=== PATIENT | male | born 1970 | race Caucasian/White ===

== ENCOUNTER 2016-11-12 22:39 | Inpatient (IN) | payer BC ==
[2016-11-12 22:49] LABS: Glucose,Whole Blood 87 mg/dL (75-99)
[2016-11-12] MEDS ORDERED: SODIUM CHLORIDE 0.9% 1,000 ML IV STA (22:53)
[2016-11-12 23:04] LABS: Basophils % (A) 0 %; CHCM 33.7; Eosinophils # (A) 0.2 k/uL (0-0.7); Eosinophils % (A) 3 %; HCT 43.3 % (39.0-53.0); HDW 2.14; HGB 14.1 gm/dL (13.0-17.5); Luc % (Auto) 2; Lymphocytes # (A) 2.4 k/uL (1.0-4.8); Lymphocytes % (A) 26 %; MCH 30.9 pg (25.0-35.0); MCHC 32.4 g/dL (31.0-37.0); MCV 95.4 fL (80.0-100.0); Mean Platelet Volume 7.5; Monocytes # (A) 0.5 k/uL (0-1.0); Monocytes % (A) 5 %; Neutrophils # (A) 5.9 k/uL (1.3-7.7); Neutrophils % (A) 63 %; RBC 4.54 m/uL (4.30-5.90); RDW 12.6 % (11.5-15.5); WBC 9.3 k/uL (3.8-10.6); WBC (Perox) 9.38
[2016-11-12 23:14] LABS: INR 1.1 (<1.1); Partial Thromboplastin Time 25.1 sec (22.0-30.0); Prothrombin Time 10.8 sec (9.0-12.0)
[2016-11-12 23:17] LABS: ALT 39 U/L (21-72); AST 28 U/L (17-59); Alkaline Phosphatase 82 U/L (38-126); Anion Gap 8 mmol/L; Blood Urea Nitrogen 20 mg/dL (9-20); Calcium 9.2 mg/dL (8.4-10.2); Carbon Dioxide 28 mmol/L (22-30); Chloride 102 mmol/L (98-107); Glucose 96 mg/dL (74-99); Magnesium 1.7 mg/dL (1.6-2.3); Non-African American GFR(MDRD) >60 (>60 ml/min/1.73 sqM); Potassium 4.3 mmol/L (3.5-5.1); Sodium 138 mmol/L (137-145); Total Bilirubin 0.6 mg/dL (0.2-1.3)
[2016-11-12 23:26] LABS: Creatine Kinase 207 U/L (55-170)
--- NOTE | 2016-11-12 23:31 | XR ---
EXAMINATION TYPE: XR chest 2V DATE OF EXAM: 11/12/2016 11:08 PM COMPARISON: June 15, 2016 HISTORY: Atrial fibrillation and syncope TECHNIQUE: Frontal and lateral views of the chest are obtained. FINDINGS: The right costophrenic angle is not completely included in the radiograph. There is a patchy airspace opacity in the right lung base with suspected mild active infiltrate or at electasis. Hyperinflation of lungs is noted. . The cardiac silhouette size is within normal limits. Moderate degenerative arthritic changes in th e thoracic spine. IMPRESSION: 1. Suspected Mild infiltrates or atelectasis in the right lung base. 2. Hyperinflation of lungs.
--- NOTE | 2016-11-12 23:36 | ED ---
General Adult HPI - General Chief complaint: Syncope Stated complaint: Syncope, fell & hit head Time Seen by Provider: 11/12/16 22:47 Source: patient, EMS, RN notes reviewed Mode of arrival: EMS Limitations: no limitations - History of Present Illness Initial comments: 46-year-old male presents to the emergency department with a chief complaint of syncopal episode. Patient states she was at work just walking around. Patient states he started to feel lightheaded and then he passed out. Patient states that he did fall backwards. Patient states that he did hit his head. Patient denies any headache or nausea at this time. Patient states that he then had the endoscope called and is here. Patient states he has a history of this in the past. Patient does admit to a history of a flutter as well. Patient states that he was admitted last time he had one of these episodes. Patient denies any pain or any symptoms at this time. Patient denies any shortness of breath and states he is not feeling lightheaded laying down.Patient denies any recent fever, chills, shortness of breath, chest pain, back pain, abdominal pain , nausea vomiting, numbness or tingling, dysuria or hematuria, constipation or diarrhea, headaches or visual changes, or any other current symptoms. - Related Data Home Medications Medication Instructions Recorded Confirmed Flecainide Acetate 50 mg PO BID 11/12/16 11/12/16 Lisinopril [Zestril] 10 mg PO DAILY 11/12/16 11/12/16 Temazepam [Restoril] 15 mg PO HS PRN 11/12/16 11/12/16 Previous Rx's Medication Instructions Recorded Metoprolol Tartrate [Lopressor] 12.5 mg PO BID #60 tab 06/17/16 Allergies Allergy/AdvReac Type Severity Reaction Status Date / Time No Known Allergies Allergy Verified 11/12/16 22:56 Review of Systems ROS Statement: Those systems with pertinent positive or pertinent negative responses have been documented in the HPI. ROS Other: All systems not noted in ROS Statement are negative. Past Medical History Past Medical History: Atrial Flutter, Sleep Apnea/CPAP/BIPAP Additional Past Medical History / Comment(s): Does not use C-PAP @ this time. Had a cardioversion with Dr. Benavidez 3 yrs. ago. No further heart problems. Has some varicose veins. History of Any Multi-Drug Resistant Organisms: None Reported Past Surgical History: Cardiac Ablation, Heart Catheterization Past Anesthesia/Blood Transfusion Reactions: No Reported Reaction Past Psychological History: No Psychological Hx Reported Smoking Status: Current every day smoker Past Alcohol Use History: None Reported, Daily Past Drug Use History: None Reported - Past Family History Mother Family Medical History: Cancer Additional Family Medical History / Comment(s): Breast Father Family Medical History: Myocardial Infarction ([place]) Sister(s) Family Medical History: Congestive Heart Failure (CHF) Brother(s) Family Medical History: Coronary Artery Disease (CAD) Additional Family Medical History / Comment(s): CABG General Exam - General Exam Comments Initial Comments: General: The patient is awake and alert, in no distress, and does not appear acutely ill. Eye: Pupils are equal, round and reactive to light, extra-ocular movements are intact; there is normal conjunctiva bilaterally. No signs of icterus. Ears, nose, mouth and throat: There are moist mucous membranes and no oral lesions. Neck: The neck is supple, there is no tenderness. Cardiovascular: There is a regular rate and rhythm. No murmur, rub or gallop is appreciated. Respiratory: Lungs are clear to auscultation, respirations are non-labored, breath sounds are equal. No wheezes, stridor, rales, or rhonchi. Gastrointestinal: Soft, non-distended, non-tender abdomen without masses or organomegaly noted. There is no rebound or guarding present. No CVA tenderness. Bowel sounds are unremarkable. Back: There is no tenderness to palpation in the midline. There is no obvious deformity. No rashes noted. Musculoskeletal: Normal ROM, no tenderness, There is no pedal edema. There is no calf tenderness or swelling. Sensation intact. Pulses equal bilaterally 2+. Neurological: CN II-XII intact, There are no obvious motor or sensory deficits. Coordination appears grossly intact. Speech is normal. Skin: Skin is warm and dry and no rashes or lesions are noted. Psychiatric: Cooperative, appropriate mood & affect, normal judgment. Limitations: no limitations Course Vital Signs 11/12/16 11/12/16 11/13/16 22:40 23:36 00:06 Temperature 97.8 F Pulse Rate 84 68 Pulse Rate [ 73 Right Sitting] Pulse Rate [ 83 Right Standing] Pulse Rate [ 75 Right Supine] Respiratory 16 18 Rate Blood Pressure 111/71 108/66 Blood Pressure 110/69 [Right Arm Sitting] Blood Pressure 113/83 [Right Arm Standing] Blood Pressure 108/65 [Right Arm Supine] O2 Sat by Pulse 98 99 Oximetry EKG Findings - EKG Comments: EKG Findings:: Normal sinus rhythm with sinus arrhythmia 93 bpm, normal axis, no atopy, no S-T depressions or elevations, Medical Decision Making - Medical Decision Making 46-year-old male presents to emergency department chief complaint of syncopal episode. At this time patient's EKG is reviewed as well as lab work. At this time patient does appear to be stable with no arrhythmias. Patient's previous workup was reviewed that did show that his syncope was caused by SVT and did have reproducible last CT in the emergency department. Due to this history as well as a syncopal episode as well as the patient's age. We will admit the patient for continued observation and monitoring. This is discussed with the patient was in agreement with this plan. Patient will be admitted at this time. Dr. Amaya was contacted by patient. - Lab Data Result diagrams: 11/12/16 22:52 11/12/16 22:52 Lab Results 11/12/16 11/12/16 11/12/16 Range/Units 22:47 22:52 22:52 WBC 9.3 (3.8-10.6) k/uL RBC 4.54 (4.30-5.90) m/uL Hgb 14.1 (13.0-17.5) gm/dL Hct 43.3 (39.0-53.0) % MCV 95.4 (80.0-100.0) fL MCH 30.9 (25.0-35.0) pg MCHC 32.4 (31.0-37.0) g/dL RDW 12.6 (11.5-15.5) % Plt Count 210 (150-450) k/uL Neutrophils % 63 % Lymphocytes % 26 % Monocytes % 5 % Eosinophils % 3 % Basophils % 0 % Neutrophils # 5.9 (1.3-7.7) k/uL Lymphocytes # 2.4 (1.0-4.8) k/uL Monocytes # 0.5 (0-1.0) k/uL Eosinophils # 0.2 (0-0.7) k/uL Basophils # 0.0 (0-0.2) k/uL PT (9.0-12.0) sec INR (<1.1) APTT (22.0-30.0) sec Sodium (137-145) mmol/L Potassium (3.5-5.1) mmol/L Chloride (98-107) mmol/L Carbon Dioxide (22-30) mmol/L Anion Gap mmol/L BUN (9-20) mg/dL Creatinine (0.66-1.25) mg/dL Est GFR (MDRD) Af Amer (>60 ml/min/1.73 sqM) Est GFR (MDRD) Non-Af (>60 ml/min/1.73 sqM) Glucose (74-99) mg/dL POC Glucose (mg/dL) 87 (75-99) mg/dL POC Glu Orbitread Operator ID [place] Calcium (8.4-10.2) mg/dL Magnesium (1.6-2.3) mg/dL Total Bilirubin (0.2-1.3) mg/dL AST (17-59) U/L ALT (21-72) U/L Alkaline Phosphatase (38-126) U/L Total Creatine Kinase 207 H (55-170) U/L CK-MB (CK-2) 4.3 H* (0.0-2.4) ng/mL CK-MB (CK-2) Rel Index 2.1 Troponin I <0.012 (0.000-0.034) ng/mL Total Protein (6.3-8.2) g/dL Albumin (3.5-5.0) g/dL Urine Color Urine Appearance (Clear) Urine pH (5.0-8.0) Ur Specific [place] (1.001-1.035) Urine Protein (Negative) Urine Glucose (UA) (Negative) Urine Ketones (Negative) Urine Blood (Negative) Urine Nitrate (Negative) Urine Bilirubin (Negative) Urine Urobilinogen (<2.0) mg/dL Ur Leukocyte Esterase (Negative) 11/12/16 11/12/16 11/13/16 Range/Units 22:52 22:52 00:40 WBC (3.8-10.6) k/uL RBC (4.30-5.90) m/uL Hgb (13.0-17.5) gm/dL Hct (39.0-53.0) % MCV (80.0-100.0) fL MCH (25.0-35.0) pg MCHC (31.0-37.0) g/dL RDW (11.5-15.5) % Plt Count (150-450) k/uL Neutrophils % % Lymphocytes % % Monocytes % % Eosinophils % % Basophils % % Neutrophils # (1.3-7.7) k/uL Lymphocytes # (1.0-4.8) k/uL Monocytes # (0-1.0) k/uL Eosinophils # (0-0.7) k/uL Basophils # (0-0.2) k/uL PT 10.8 (9.0-12.0) sec INR 1.1 (<1.1) APTT 25.1 (22.0-30.0) sec Sodium 138 (137-145) mmol/L Potassium 4.3 (3.5-5.1) mmol/L Chloride 102 (98-107) mmol/L Carbon Dioxide 28 (22-30) mmol/L Anion Gap 8 mmol/L BUN 20 (9-20) mg/dL Creatinine 0.90 (0.66-1.25) mg/dL Est GFR (MDRD) Af Amer >60 (>60 ml/min/1.73 sqM) Est GFR (MDRD) Non-Af >60 (>60 ml/min/1.73 sqM) Glucose 96 (74-99) mg/dL POC Glucose (mg/dL) (75-99) mg/dL POC Glu Orbitread Operator ID Calcium 9.2 (8.4-10.2) mg/dL Magnesium 1.7 (1.6-2.3) mg/dL Total Bilirubin 0.6 (0.2-1.3) mg/dL AST 28 (17-59) U/L ALT 39 (21-72) U/L Alkaline Phosphatase 82 (38-126) U/L Total Creatine Kinase (55-170) U/L CK-MB (CK-2) (0.0-2.4) ng/mL CK-MB (CK-2) Rel Index Troponin I (0.000-0.034) ng/mL Total Protein 7.0 (6.3-8.2) g/dL Albumin 4.2 (3.5-5.0) g/dL Urine Color Yellow Urine Appearance Clear (Clear) Urine pH 5.0 (5.0-8.0) Ur Specific [place] 1.020 (1.001-1.035) Urine Protein Negative (Negative) Urine Glucose (UA) Negative (Negative) Urine Ketones Negative (Negative) Urine Blood Negative (Negative) Urine Nitrate Negative (Negative) Urine Bilirubin Negative (Negative) Urine Urobilinogen <2.0 (<2.0) mg/dL Ur Leukocyte Esterase Negative (Negative) Disposition Clinical Impression: Syncope, Hx of atrial flutter Disposition: ADMITTED IP TO THIS HOSP Condition: Stable Time of Disposition: 00:53 Decision Date: 11/13/16 Decision Time: 00:53
[2016-11-12 23:40] LABS: Troponin I <0.012 ng/mL (0.000-0.034)
[2016-11-12 23:41] LABS: Creatine Kinase MB 4.3 ng/mL (0.0-2.4)
[2016-11-13 00:51] LABS: Appearance,Urine Clear (Clear); Bilirubin,Urine Negative (Negative); Glucose,Urine (UA) Negative (Negative); Ketones,Urine Negative (Negative); Leukocyte Esterase,Urine Negative (Negative); Nitrite,Urine Negative (Negative); Protein,Urine Negative (Negative); UA Billing (MACRO vs. MICRO) CHEM; Urobilinogen,Urine <2.0 mg/dL (<2.0)
[2016-11-13] MEDS ORDERED: NALOXONE 0.4 MG/ML 1 ML VIAL IV PRN (00:53)
[2016-11-13] MEDS ORDERED: ACETAMINOPHEN TAB 325 MG TAB PO PRN (00:53)
[2016-11-13] MEDS ORDERED: TEMAZEPAM 15 MG CAP PO PRN (00:57)
[2016-11-13] MEDS: SODIUM CHLORIDE 0.9% 1,000 ML IV SCH ×2 (01:06→01:53)
[2016-11-13 01:31] LABS: Glucose,Whole Blood 82 mg/dL (75-99)
[2016-11-13 01:47] VITALS: TEMP 97.6; BMI 26.8
[2016-11-13 04:54] LABS: Basophils % (A) 1 %; CH 31.8; CHCM 33.6; Eosinophils # (A) 0.3 k/uL (0-0.7); Eosinophils % (A) 4 %; HCT 39.9 % (39.0-53.0); HDW 2.09; HGB 13.2 gm/dL (13.0-17.5); Luc # (Auto) 0.22; Luc % (Auto) 3; Lymphocytes # (A) 2.5 k/uL (1.0-4.8); Lymphocytes % (A) 33 %; MCH 31.4 pg (25.0-35.0); MCHC 33.1 g/dL (31.0-37.0); MCV 94.9 fL (80.0-100.0); Mean Platelet Volume 6.8; Monocytes # (A) 0.3 k/uL (0-1.0); Monocytes % (A) 4 %; Neutrophils # (A) 4.4 k/uL (1.3-7.7); Neutrophils % (A) 56 %; RDW 12.5 % (11.5-15.5); WBC 7.8 k/uL (3.8-10.6); WBC (Perox) 8.34
[2016-11-13 05:08] LABS: Anion Gap 7 mmol/L; Blood Urea Nitrogen 17 mg/dL (9-20); Calcium 8.7 mg/dL (8.4-10.2); Carbon Dioxide 25 mmol/L (22-30); Chloride 105 mmol/L (98-107); Glucose 101 mg/dL (74-99); Magnesium 1.9 mg/dL (1.6-2.3); Non-African American GFR(MDRD) >60 (>60 ml/min/1.73 sqM); Phosphorous 3.5 mg/dL (2.5-4.5); Potassium 3.9 mmol/L (3.5-5.1); Sodium 137 mmol/L (137-145)
[2016-11-13 05:15] LABS: Creatine Kinase 172 U/L (55-170)
[2016-11-13 05:29] LABS: Troponin I <0.012 ng/mL (0.000-0.034)
[2016-11-13 05:35] LABS: Creatine Kinase MB 2.9 ng/mL (0.0-2.4)
[2016-11-13] MEDS ORDERED: LISINOPRIL 10 MG TAB PO SCH (09:00)
[2016-11-13] MEDS ORDERED: METOPROLOL TARTRATE 12.5 MG TAB PO SCH (09:00)
[2016-11-13] MEDS ORDERED: FLECAINIDE 50 MG TAB PO SCH (09:00)
[2016-11-13] MEDS ORDERED: NICOTINE 14MG/24HR PATCH TRANSDERM SCH (10:00)
[2016-11-13 12:18] LABS: Creatine Kinase 193 U/L (55-170)
[2016-11-13 12:32] LABS: Troponin I <0.012 ng/mL (0.000-0.034)
[2016-11-13 12:36] LABS: Creatine Kinase MB 3.1 ng/mL (0.0-2.4)
--- NOTE | 2016-11-13 14:32 | P.HPIM ---
History of Present Illness H&P Date: 11/13/16 Chief Complaint: Syncopal episode This is a 46-year-old male, patient of Dr. Ngo. He has a known past medical history of atrial flutter in which she has had previous cardiac ablation. Also history of nicotine dependence. Patient presented to the emergency room after having a syncopal episode. Patient reports that he was at work and walking. He started having had some lightheadedness and then passed out. Patient reports lost consciousness probably a few seconds. Patient reports that he did hit his head. He denies any headache or nausea. Patient has been having episodes of heart palpitations. He reports that he has been taking his cardiac meds. And he follows up with cardiology regularly. He denies any chest pain or shortness of breath. Denies any nausea or vomiting. Denies any bowel movement changes or urinary symptoms. Denies any fevers chills or sweats. Denies any cough. EKG had shown normal sinus rhythm with sinus arrhythmia. Chest x-ray suspect mild infiltrate versus atelectasis at the right lung base. Cardiology has been consulted. Patient was admitted to the ICU. Per ER report they reported that patient did have a previous syncopal episode due to SVT. Patient reports no previous syncopal episode. In June he did have episodes of dizziness related to atrial tachycardia. Review of Systems Please refer to HPI otherwise unremarkable Past Medical History Past Medical History: Atrial Flutter, Sleep Apnea/CPAP/BIPAP Additional Past Medical History / Comment(s): Does not use C-PAP @ this time. Had a cardioversion with Dr. Benavidez 3 yrs. ago. No further heart problems. Has some varicose veins. History of Any Multi-Drug Resistant Organisms: None Reported Past Surgical History: Cardiac Ablation, Heart Catheterization Past Anesthesia/Blood Transfusion Reactions: No Reported Reaction Past Psychological History: No Psychological Hx Reported Smoking Status: Current every day smoker Past Alcohol Use History: None Reported, Daily Past Drug Use History: None Reported - Past Family History Mother Family Medical History: Cancer Additional Family Medical History / Comment(s): Breast Father Family Medical History: Myocardial Infarction ([place]) Sister(s) Family Medical History: Congestive Heart Failure (CHF) Brother(s) Family Medical History: Coronary Artery Disease (CAD) Additional Family Medical History / Comment(s): CABG Medications and Allergies Home Medications Medication Instructions Recorded Confirmed Type Flecainide Acetate 50 mg PO BID 11/12/16 11/12/16 History Lisinopril [Zestril] 10 mg PO DAILY 11/12/16 11/12/16 History Temazepam [Restoril] 15 mg PO HS PRN 11/12/16 11/12/16 History Allergies Allergy/AdvReac Type Severity Reaction Status Date / Time No Known Allergies Allergy Verified 11/12/16 22:56 Physical Exam Vitals: Vital Signs Temp Pulse Pulse Resp BP BP Pulse Ox 11/13/16 03:23 14 129/69 96 11/13/16 01:23 97.6 F 62 14 96 11/13/16 01:07 97.4 F L 63 18 110/65 99 Intake and Output 11/12/16 11/13/16 11/13/16 22:59 06:59 14:59 Intake Total 600 Output Total 900 Balance -300 Intake: IV 600 Sodium Chloride 0.9% 1, 600 000 ml @ 150 mls/hr IV . Q6H40M [facility] Rx#:[id number] Output: Urine 900 Other: Voiding Method Urinal Urinal Weight 105.3 kg Head normocephalic Neck supple Lungs clear to auscultation bilaterally no wheezing or crackles Heart regular rate and rhythm S1-S2, no rub or gallop Abdomen is soft nontender nondistended positive bowel sounds no hepatosplenomegaly Extremities no edema Neuro alert and orientated to 3 Results CBC & Chem 7: 11/13/16 04:41 11/13/16 04:41 Labs: Abnormal Lab Results - Last 24 Hours (Table) 11/13/16 11/13/16 11/13/16 Range/Units 04:41 04:41 04:41 RBC 4.20 L (4.30-5.90) m/uL Glucose 101 H (74-99) mg/dL Total Creatine Kinase 172 H (55-170) U/L CK-MB (CK-2) 2.9 H* (0.0-2.4) ng/mL Thrombosis Risk Factor Assmnt - Choose All That Apply Any of the Below Risk Factors Present?: Yes Each Factor Represents 1 point: Age 41-60 years Thrombosis Risk Factor Assessment Total Risk Factor Score: 1 Thrombosis Risk Factor Assessment Level: Low Risk Assessment and Plan Plan: 1. Syncopal episode: Patient admitted to the ICU. Monitor for any cardiac arrhythmias. Currently in normal sinus rhythm. Cardiology consulted. Last echo was June 2016 with normal EF and no significant valvular abnormality 2. Nicotine dependence: Discussed smoking cessation. Patient is interested in quitting. We'll add nicotine patch 14 mg daily 3. Atelectasis on chest x-ray without pneumonia. Patient denies any significant cough no fever and no leukocytosis. We'll add incentive spirometer 4. History of atrial flutter with previous cardiac ablation about 4 years ago. Continue flutter made and Lopressor. Continue to monitor. We'll await further cardiology recommendations. GI prophylaxis Pepcid and DVT prophylaxis subcu heparin Time with Patient: Greater than 30 (Greater than 50% of the total time spent in counseling and coordination of care.I performed an examination of the patient and discussed their management with the physician Boatwright. I have reviewed the Physician Boatwright's notes and agree with the documented findings and plan of care)
--- NOTE | 2016-11-13 14:36 | P.DS ---
Providers Date of admission: 11/13/16 00:53 Expected date of discharge: 11/13/16 Attending physician: Tyler Amaya Consults: Cardiology Primary care physician: Sheila Ngo Hospital Course: Discharge diagnosis 1. Syncopal episode: Exact etiology unclear. Possibly related to cardiac arrhythmia. Further workup to be completed outpatient with event monitor. Monitor for any cardiac arrhythmias. Currently in normal sinus rhythm. Cardiology consulted. Last echo was June 2016 with normal EF and no significant valvular abnormality 2. Nicotine dependence: Discussed smoking cessation. Patient is interested in quitting. We'll add nicotine patch 14 mg daily 3. Atelectasis on chest x-ray without pneumonia. Patient denies any significant cough no fever and no leukocytosis. We'll add incentive spirometer 4. History of atrial flutter with previous cardiac ablation about 4 years ago. Continue flutter made and Lopressor. Continue to monitor. We'll await further cardiology recommendations. Hospital course This is a 46-year-old male, patient of Dr. Ngo. He has a known past medical history of atrial flutter in which she has had previous cardiac ablation. Also history of nicotine dependence. Patient presented to the emergency room after having a syncopal episode. Patient reports that he was at work and walking. He started having had some lightheadedness and then passed out. Patient reports lost consciousness probably a few seconds. Patient reports that he did hit his head. He denies any headache or nausea. Patient has been having episodes of heart palpitations. He reports that he has been taking his cardiac meds. And he follows up with cardiology regularly. He denies any chest pain or shortness of breath. Denies any nausea or vomiting. Denies any bowel movement changes or urinary symptoms. Denies any fevers chills or sweats. Denies any cough. EKG had shown normal sinus rhythm with sinus arrhythmia. Chest x-ray suspect mild infiltrate versus atelectasis at the right lung base. Cardiology has been consulted. Per ER report they reported that patient did have a previous syncopal episode due to SVT. Patient reports no previous syncopal episode. In June he did have episodes of dizziness related to atrial tachycardia. Patient has remained in sinus rhythm. The exact etiology of his syncopal episode is unclear but possibly related to a cardiac arrhythmia. Cardiology has recommended that he be discharged and to be set up with an event monitor. Patient will fern picker the event monitor after being discharged today. And will follow-up with cardiology in the outpatient setting. Patient has been a symptom during this hospitalization. He is stable for discharge. Please refer to chart for any further details. Patient Condition at Discharge: Stable Plan - Discharge Summary Discharge Medication List Metoprolol Tartrate [Lopressor] 12.5 mg PO BID #60 tab 06/17/16 [Rx] Flecainide Acetate 50 mg PO BID 11/12/16 [History] Temazepam [Restoril] 15 mg PO HS PRN 11/12/16 [History] Follow up Appointment(s)/Referral(s): Shyam Benavidez MD [STAFF PHYSICIAN] - 1 Week Sheila Ngo DO [Primary Care Provider] - 1 Week Activity/Diet/Wound Care/Special Instructions: Diet: cardiac Activity: as tolerated Patient to fern picker Event Monitor at [facility] Discharge Disposition: HOME SELF-CARE
[2016-11-13 14:56] VITALS: BP 121/86; PULSE 55; RESP 27
[2016-11-13] MEDS ORDERED: HEPARIN SODIUM,PORCINE 5,000 UNIT/ML 1 ML VIAL SQ SCH (21:00)
--- NOTE | 2016-11-13 23:13 | P.CRDCN ---
History of Present Illness Consult date: 11/13/16 History of present illness: This is a 46-year-old gentleman with a past medical history of atrial flutter for which he had ablation done in the past. Patient has had occasional brief palpitations. Apparently patient was started on a new medication presumably lisinopril . Patient in the past had occasional episodes of dizziness and near syncope but never expenses syncopal episode. Yesterday patient had an episode of palpitations which last a little longer than usual but subsided spontaneously patient tried to get up and felt lightheaded as usual but patient would not sit down and actually ended up having a syncopal episode. Nobody was around. Patient did not have any major injuries. Patient came to the emergency room for further evaluation. Patient is found to be slightly bradycardic but maintaining sinus rhythm. No postural hypotension was documented. Patient denied any chest pain or shortness of breath. As patient remained clinically stable and cardiac enzymes are negative without any significant arrhythmias, patient is being discharged home. Patient will have a event monitor as an outpatient and have follow-ups with Dr. Benavidez for further evaluation. Patient is also advised to stop lisinopril until seen by Dr. Benavidez. Review of Systems REVIEW OF SYSTEMS: CONSTITUTIONAL:. Patient is doing well. No complaints of fever or chills EYES: Denies diplopia, blurring of vision EARS, NOSE, MOUTH, THROAT: Denies headaches, denies sore throat. CARDIOVASCULAR: As for consult RESPIRATORY: Denies shortness of breath, denies cough. GASTROINTESTINAL: Denies change in appetite, denies abdominal pain, denies diarrhea GENITOURINARY: Denies hematuria, denies infections. MUSKULOSKELETAL: Denies pain, denies swelling. Denies any cramps or claudication INTEGUMENTARY: Denies rash, denies eczema. NEUROLOGICAL: Denies focal weakness, or visual disturbance. Denies any dizziness or syncope PSYCHIATRIC: Denies anxiety, denies depression. HEMATOLOGIC/LYMPHATIC: Denies any bleeding, denies enlarged lymph nodes. Past Medical History Past Medical History: Atrial Flutter, Sleep Apnea/CPAP/BIPAP Additional Past Medical History / Comment(s): Does not use C-PAP @ this time. Had a cardioversion with Dr. Benavidez 3 yrs. ago. No further heart problems. Has some varicose veins. History of Any Multi-Drug Resistant Organisms: None Reported Past Surgical History: Cardiac Ablation, Heart Catheterization Past Anesthesia/Blood Transfusion Reactions: No Reported Reaction Past Psychological History: No Psychological Hx Reported Smoking Status: Current every day smoker Past Alcohol Use History: None Reported, Daily Past Drug Use History: None Reported - Past Family History Mother Family Medical History: Cancer Additional Family Medical History / Comment(s): Breast Father Family Medical History: Myocardial Infarction ([place]) Sister(s) Family Medical History: Congestive Heart Failure (CHF) Brother(s) Family Medical History: Coronary Artery Disease (CAD) Additional Family Medical History / Comment(s): CABG Medications and Allergies Home Medications Medication Instructions Recorded Confirmed Type Flecainide Acetate 50 mg PO BID 11/12/16 11/12/16 History Temazepam [Restoril] 15 mg PO HS PRN 11/12/16 11/12/16 History Allergies Allergy/AdvReac Type Severity Reaction Status Date / Time No Known Allergies Allergy Verified 11/12/16 22:56 Physical Exam Vitals: Vital Signs Temp Pulse Pulse Resp BP BP Pulse Ox 11/13/16 13:00 55 L 27 H 121/86 99 11/13/16 08:00 55 L 14 119/66 97 11/13/16 07:00 50 L 15 96 11/13/16 06:00 75 32 H 96 11/13/16 05:00 52 L 14 96 11/13/16 04:00 59 L 18 96 11/13/16 03:23 14 129/69 96 11/13/16 03:00 55 L 17 129/69 91 L 11/13/16 02:00 68 15 129/69 96 11/13/16 01:29 62 22 11/13/16 01:23 97.6 F 62 14 96 11/13/16 01:07 97.4 F L 63 18 110/65 99 Intake and Output 11/13/16 11/13/16 11/14/16 14:59 22:59 06:59 Other: Voiding Method Urinal GENERAL EXAM: Patient is alert and oriented and doesn't appear to be in any acute distress HEENT: Normocephalic. Normal reaction of pupils, equal size, normal range of extraocular motion. No erythema or exudates in the throat. NECK: No masses, no nuchal rigidity. CHEST: No chest wall deformity. LUNGS: Equal air entry with no crackles or wheeze. HEART: S1 and S2 normal with no audible mumurs or gallops. Regular rhythm, femorals equal on both sides.. ABDOMEN: No hepatosplenomegaly, normal bowel sounds, no guarding or rigidity. SKIN: No rashes CENTRAL NERVOUS SYSTEM: No focal deficits. EXTREMITIES: No cyanosis, clubbing or edema. Results 11/13/16 04:41 11/13/16 04:41 Cardiac Enzymes 11/13/16 11/13/16 Range/Units 04:41 11:17 CK-MB (CK-2) 2.9 H* 3.1 H* (0.0-2.4) ng/mL Troponin I <0.012 <0.012 (0.000-0.034) ng/mL CBC 11/13/16 Range/Units 04:41 WBC 7.8 (3.8-10.6) k/uL RBC 4.20 L (4.30-5.90) m/uL Hgb 13.2 (13.0-17.5) gm/dL Hct 39.9 (39.0-53.0) % Plt Count 198 (150-450) k/uL Comprehensive Metabolic Panel 11/13/16 Range/Units 04:41 Sodium 137 (137-145) mmol/L Potassium 3.9 (3.5-5.1) mmol/L Chloride 105 (98-107) mmol/L Carbon Dioxide 25 (22-30) mmol/L BUN 17 (9-20) mg/dL Creatinine 0.70 (0.66-1.25) mg/dL Glucose 101 H (74-99) mg/dL Calcium 8.7 (8.4-10.2) mg/dL Intake and Output 11/13/16 11/13/16 11/14/16 14:59 22:59 06:59 Other: Voiding Method Urinal 11/13/16 04:41 11/13/16 04:41 EKG Interpretations (text) Showed sinus rhythm with normal TN interval and QRS duration. QT interval is 346 with corrected QT interval of 430 ms Assessment and Plan (1) SVT (supraventricular tachycardia) Status: Acute (2) Syncope Status: Acute Plan: Patient has remained stable since admission with negative cardiac enzymes and stable cardiac rhythm except bradycardia. Patient is being discharged home. He will monitor with event monitor. We will discontinue lisinopril until seen by Dr. Benavidez. Further recommendations depend upon the clinical course.
[2016-11-14] MEDS ORDERED: FAMOTIDINE 20 MG TAB PO SCH (09:00)
== END 2016-11-13 15:56 | disposition home or self-care (01) | DRG 312 ==
LOC: EC 22:39 → 6ICU 11-13 00:53
PROVIDERS: ADMIT Internal Medicine; ATTEND Internal Medicine
DX: R55 Syncope and collapse (principal); I48.92 Unspecified atrial flutter; J98.11 Atelectasis; R42 Dizziness and giddiness; I49.9 Cardiac arrhythmia, unspecified; R00.2 Palpitations; G47.30 Sleep apnea, unspecified; F17.200 Nicotine dependence, unspecified, uncomplicated; I83.90 Asymptomatic varicose veins of unspecified lower extremity; Z71.6 Tobacco abuse counseling; Z98.890 Other specified postprocedural states; Z82.49 Family history of ischemic heart disease and other diseases of the circulatory system; Z79.899 Other long term (current) drug therapy; Z80.3 Family history of malignant neoplasm of breast; W01.10XA Fall on same level from slipping, tripping and stumbling with subsequent striking against unspecified object, initial encounter; Y93.01 Activity, walking, marching and hiking; Y92.9 Unspecified place or not applicable
CPT/HCPCS: 36415; 71020; 80048; 80053; 81003; 82550; 82553; 83735; 84100; 84484; 85025; 85610; 85730; 93005; 96360; 96361; 99285

== ENCOUNTER 2017-03-08 06:14 | Day surgery (SDC) | payer BC ==
[2017-03-05 10:42] VITALS: BMI 27.7
[2017-03-08] MEDS ORDERED: LIDOCAINE 1% 20 ML VIAL (10MG/ML) FOR IV START INTRADERMA PRN (06:19)
[2017-03-08] MEDS ORDERED: ceFAZolin 2 GM in SODIUM CHLORIDE 0.9% 100 ML IVPB ONE (06:19)
[2017-03-08] MEDS ORDERED: HYDROmorphone 1 MG/ML 1 ML SYRINGE IVP PRN (06:19)
[2017-03-08] MEDS ORDERED: ONDANSETRON 4 MG/2 ML VIAL IVP ONE (06:19)
[2017-03-08] MEDS ORDERED: ceFAZolin 1,000 MG in SODIUM CHLORIDE 0.9% IRRIGATIO 250 ML IRRIGATION ONE (06:19)
[2017-03-08] MEDS ORDERED: HEPARIN SODIUM 1,000 UNIT/ML VIAL ONE (07:16)
[2017-03-08] MEDS ORDERED: PROTAMINE SULFATE 10 MG/ML 5 ML VIAL IV ONE (07:16)
[2017-03-08] MEDS ORDERED: LIDOCAINE 1% INJ 10MG/ML (20 ML MDV) ONE (07:16)
[2017-03-08] MEDS ORDERED: HEPARIN SODIUM,PORCINE 10,000 UNIT/ML 1 ML VIAL ONE (07:16)
[2017-03-08] MEDS ORDERED: fentaNYL (PF) 50 MCG/ML 2 ML AMP ONE (07:16)
[2017-03-08] MEDS ORDERED: ROCURONIUM BROMIDE 10 MG/ML 10 ML VIAL IV ONE (07:16)
[2017-03-08] MEDS ORDERED: NEOSTIGMINE 1 MG/ML 10 ML VIAL ONE (07:16)
[2017-03-08] MEDS ORDERED: GLYCOPYRROLATE 0.2 MG/ML 2 ML VIAL ONE (07:16)
[2017-03-08] MEDS ORDERED: VECURONIUM 10 MG VIAL IV ONE (07:16)
[2017-03-08] MEDS ORDERED: MIDAZOLAM 2 MG/2 ML VIAL ONE (07:16)
[2017-03-08] MEDS ORDERED: ISOPROTERENOL 250 MCG/1.25 ML SYR IV ONE (07:16)
[2017-03-08] MEDS ORDERED: SUCCINYLCHOLINE CHLORIDE 100 MG/5 ML SYR IV ONE (07:16)
[2017-03-08] MEDS ORDERED: PROPOFOL 10 MG/ML 20 ML VIAL IV ONE (07:16)
[2017-03-08] MEDS ORDERED: IOHEXOL 350 MG/ML 50ML BOTTLE INJ ONE (07:43)
[2017-03-08] MEDS ORDERED: SODIUM CHLORIDE 0.9% 1,000 ML IV ONE (07:44)
[2017-03-08] MEDS: LIDOCAINE 2% INJ 20 MG/ML SQ ONE ×2 (08:23→08:34)
[2017-03-08] MEDS ORDERED: HEPARIN SODIUM,PORCINE/D5W PMX 25,000 UNIT in DEXTROSE/WATER 1 500ML.BAG IV ONE (08:40)
[2017-03-08] MEDS ORDERED: HEPARIN SODIUM (1,000 UNIT/ML) 1,000 UNIT in SODIUM CHLORIDE 0.9% 1,000 ML IRRIGATION ONE ×2 (10:35→12:28)
[2017-03-08] MEDS ORDERED: ACETAMINOPHEN TAB 325 MG TAB PO PRN (14:12)
[2017-03-08] MEDS ORDERED: ACETAMINOPHEN IV (For NPO) 1,000 MG in EMPTY BAG 1 BAG IVPB ONE (14:12)
[2017-03-08] MEDS ORDERED: TEMAZEPAM 15 MG CAP PO PRN (14:14)
[2017-03-08] MEDS ORDERED: ACETAMINOPHEN IV (For NPO) 1,000 MG/100 ML VIAL IVPB ONE (14:27)
--- NOTE | 2017-03-08 15:12 | CE ---
DATE OF SERVICE: Jose Sandy is a 47-year-old male patient who has a history of AV amilcar re-entrant tachycardia, status post successful ablation as well as typical atrial flutter, status post successful ablation many years back. He has been experiencing episodes of paroxysmal atrial fibrillation on flecainide. He was brought in for management of symptomatic atrial fibrillation with RVR, refractory to flecainide therapy. Patient is brought to the EP lab in a fast state. Written informed consent was obtained prior to the procedure. A diagnostic study and with Isuprel infusion performed at the outset. A 6 Yi venous sheath was placed in the left axillary vein. Via this, a decapolar catheter was positioned in the coronary sinus for coronary sinus pacing and recording. The right and left groins were prepped and draped as per protocol and a total of 3 venous sheaths were placed and femoral arterial sheath was placed. The femoral artery sheath was used for hemodynamic monitoring through the procedure as well as sampling. AST was maintained above 300. At the end of the procedure, the sheath was removed, Hemostasis was assured. Diagnostic catheters were placed in the coronary sinus RV, RA and HIS bundle area. Baseline measurements were as follows: Sinus cycle length 1015 ms, WY interval 185 ms, QRS 106 ms, QT 429 ms, AH interval 78 ms, HV interval 46 ms. With atrial pacing, no delta waves were noted, no slow pathway conduction was noted. Sinus node recovery times at 600, 500 and 400 ms were 1507, 1217, 1636 ms. Corresponding corrected sinus node recovery times were mildly prolonged. AV node Wenckebach block 460 ms from both the coronary sinus and the high right atrium. AV node ERP 600 ERP from the coronary sinus was 600 stimulation was performed from the coronary sinus and short bursts of nonsustained SVT, atrial tachycardia with a concentric activation was noted but no sustained SVT was noted. Burst stimulation on the high right atrium was performed from 400 ms down to 200 ms. On Isuprel, there was a semblance of slow pathway conduction, straight pacing, AV node at 250 ms with AV node Wenckebach block at 220 ms, no SVT was induced, no AV amilcar re-entry was induced. Occasional echo beats noted. VA Wenckebach block 320 ms, retrograde conduction was midline and detrimental, ventricular extrastimulation was performed. Ventricular ERP with 500 Following this Isuprel was stopped. Heparin was started. Right and left intracardiac echocardiography was performed. Intracardiac echocardiography in the interatrial septum was identified, transseptal catheterization was performed. RA pressure of 15 x 13 x 14 mmHg, LA pressure 19 x 11 x 14 mmHg. Three-D mapping of the pulmonary veins and the left atrium was performed. Voltage map of the veins was performed. Following that, antral isolation of the right-sided veins was performed and at the end of the procedure with pacing techniques as well as with mapping, both entrance and exit block was proven in the right ( ) veins. Please note that this was left-sided esophagus. The esophagus did not have to be deflected away and the ablation of the right-sided veins did not require esophageal deflection. The right-sided veins were large. Each vein divided into at least 2 branches almost immediately beyond the os. There was a left-sided esophagus right behind the posterior antrum of the left-sided veins. Initially RF ablation with anterior aspect was performed along the ridge with good power and contact force during short periods of apnea; however, when the posterior aspect was ablated, the esophagus could not be deflected a safe distance away. Occasional RF lesions were given especially outside in the antrum of the left inferior vein but these are very sporadic lesions and a full lesion set could not be made and the left superior vein was not ablated posteriorly at all. There was a rise in temperature when ablating the left inferior vein to 37.8 degrees centigrade. Deflection of the left-sided esophagus was difficult, both the left foot as well as right foot deflection was attempted, but this could not be safely deflected from the antrum and, therefore the left-sided veins could not be completely isolated and posterior wall ablation could not performed. Following that, heparin was stopped, catheter was removed, catheter was removed from the left atrium and right atrial mapping was performed. The patient had a previous atrial flutter ablation and voltage map of the right atrial isthmus was performed. Three-D mapping was performed. This was a short but a saucer-shaped isthmus. There was recovery in the subeustachian pouch in the eustachian ridge, RF ablation was carefully applied and noncapture was documented all along the area of ablation of the right atrial isthmus for atrial flutter. At the end of the procedure, Protamine was administered and patient the sheaths were removed. Patient was transferred back to telemetry after extubation. RESULT: 1. Diagnostic EP study revealed noninducibility of any sustained arrhythmias, especially AV node re-entry. 2. Successful ablation of the right-sided pulmonary veins at the antral level with complete entrance and exit block. 3. Left-sided esophagus that could not be deflected a safe distance away, despite attempting deflection in both directions right and left. 4. The left-sided veins at the result of this could not be ablated successfully in the posterior antrum, because it was unsafe. 5. Atrial flutter ablation (voltage mapping paced). PLAN: Continue rivaroxaban for at least 3 months and continue flecainide 75 mg twice daily. If he continues to have palpitations, then cryoablation will be attempted with temperature monitoring. I did speak to the family members and also spoke to the patient regarding this, that he will probably benefit from a cryoablation in the future, but I would prefer to wait for minimum of at least 3 to 4 months so that in case there is recovery on the right side, then we can ablate it at the same time.
[2017-03-08] MEDS: SODIUM CHLORIDE 0.9% 1,000 ML IV SCH (16:33)
[2017-03-08] MEDS: LACTATED RINGERS 1,000 ML IV SCH (16:33)
[2017-03-08] MEDS: HYDROcodone/APAP 5-325MG 1 EACH TAB PO PRN (16:37)
[2017-03-08] MEDS: RIVAROXABAN 10 MG TAB PO SCH (18:21)
[2017-03-08] MEDS: METOPROLOL TARTRATE 12.5 MG TAB PO SCH (20:02)
[2017-03-08] MEDS: FLECAINIDE 50 MG TAB PO SCH (20:02)
[2017-03-09] MEDS: LACTATED RINGERS 1,000 ML IV SCH (00:25)
[2017-03-09] MEDS: SODIUM CHLORIDE 0.9% 1,000 ML IV SCH (04:05)
[2017-03-09] MEDS: HYDROcodone/APAP 5-325MG 1 EACH TAB PO PRN ×2 (06:01→20:53)
[2017-03-09 07:00] LABS: Basophils % (A) 0 %; CH 31.9; CHCM 33.3; Eosinophils # (A) 0.1 k/uL (0-0.7); Eosinophils % (A) 1 %; HCT 42.7 % (39.0-53.0); HDW 2.14; HGB 14.1 gm/dL (13.0-17.5); Luc # (Auto) 0.19; Luc % (Auto) 2; Lymphocytes # (A) 1.3 k/uL (1.0-4.8); Lymphocytes % (A) 10 %; MCH 31.8 pg (25.0-35.0); MCHC 33.1 g/dL (31.0-37.0); MCV 96.1 fL (80.0-100.0); Mean Platelet Volume 6.9; Monocytes # (A) 0.6 k/uL (0-1.0); Monocytes % (A) 5 %; Neutrophils # (A) 10.2 k/uL (1.3-7.7); Neutrophils % (A) 83 %; RBC 4.44 m/uL (4.30-5.90); RDW 12.5 % (11.5-15.5); WBC 12.3 k/uL (3.8-10.6); WBC (Perox) 12.27
[2017-03-09 07:08] LABS: Anion Gap 8 mmol/L; Blood Urea Nitrogen 10 mg/dL (9-20); Calcium 9.1 mg/dL (8.4-10.2); Carbon Dioxide 26 mmol/L (22-30); Chloride 102 mmol/L (98-107); Glucose 116 mg/dL (74-99); Non-African American GFR(MDRD) >60 (>60 ml/min/1.73 sqM); Potassium 4.3 mmol/L (3.5-5.1); Sodium 136 mmol/L (137-145)
[2017-03-09] MEDS ORDERED: FUROSEMIDE 40 MG TAB PO STA (07:31)
[2017-03-09] MEDS: METOPROLOL TARTRATE 12.5 MG TAB PO SCH ×2 (08:20→20:54)
[2017-03-09] MEDS: FAMOTIDINE 20 MG TAB PO SCH (08:20)
[2017-03-09] MEDS: COLCHICINE 0.6 MG TAB PO SCH ×2 (08:20→20:54)
[2017-03-09] MEDS: FLECAINIDE 50 MG TAB PO SCH ×2 (08:21→20:54)
--- NOTE | 2017-03-09 08:35 | PN ---
DATE OF SERVICE: Jose underwent an A. fib ablation yesterday with esophageal deflection for a left-sided esophagus that could not be deflected and it finally could not really be deflected an adequate distance away from the left antrum posteriorly. Yesterday evening when I saw him he looked comfortable. He denied any chest discomfort or sore throat, but this morning he complains of sore throat. He also complains of chest discomfort which is pleuritic in nature. No odynophagia. No fever, chills. He does complain of shortness of breath upon walking, but at rest he looks comfortable. No dizziness, no lightheadedness. This morning he had an episode of sinus tachycardia. It did not appear like an atrial tachycardia. There was a gradual ( ). His blood pressure has been 141/73 mm of mercury, heart rate is in the 80s at rest and groin has healed well. No hematoma. Afebrile, 98.5 degrees Fahrenheit. Head and neck examination is normal. No JVD, thyromegaly, or carotid bruits. Heart sounds S1, S2 are normal. No rub, no gallop. No murmurs. Breath sounds are normal. No rhonchi. No crackles. ABDOMEN: Soft, nontender. EXTREMITIES: Warm. No edema. Groins are healed well. No hematoma. IMPRESSIONS: 1. Paroxysmal atrial fibrillation, status post atrial fibrillation ablation with complete isolation of the right-sided veins, but incomplete isolation of the left-sided veins. The posterior antrum was not ablated on account of the esophagus that could not be deflected a safe distance away and therefore linear ablation in this area was avoided. 2. Atrial flutter, status post ablation. 3. AV amilcar re-entry status post successful ablation in the past. SUGGEST: 1. Add one dose of Lasix 40 mg p.o. 2. Colchicine 0.6 mg twice daily. 3. Pepcid 20 mg p.o. daily. 4. Continue other cardiac medications. 5. Continue anticoagulation. 6. Continue flecainide and metoprolol. 7. Pepcid and colchicine will be continued. 8. Labs awaited, CBC and BMP.
[2017-03-09 08:50] VITALS: RESP 18
[2017-03-09] MEDS ORDERED: RIVAROXABAN 10 MG TAB PO SCH (09:00)
[2017-03-09] MEDS ORDERED: NON-FORMULARY DRUG (Rivaroxaban [Xarelto] 20 MG) PO SCH (09:00)
[2017-03-09] MEDS: RIVAROXABAN 10 MG TAB PO SCH (16:53)
[2017-03-09] MEDS ORDERED: FLECAINIDE 50 MG TAB PO STA (23:16)
[2017-03-10 03:52] VITALS: PULSE 78
[2017-03-10] MEDS ORDERED: RX INFO: IV CONTRAST WAS GIVEN 1 EACH MISC MISCELLANE PRN (06:29)
--- NOTE | 2017-03-10 07:40 | CT ---
EXAMINATION TYPE: CT chest w con DATE OF EXAM: 03/10/2017 7:09 AM COMPARISON: Correlation radiographs 11/12/2016 HISTORY: 47-year-old male evaluate for esophageal fistula, air in mediastinum post cardiac ablation TECHNIQUE: Contiguous axial scanning of the chest after the administration of 100 mL of Omnipaque 300 . Coronal/sagittal reconstructions performed. CT DLP: 472.2mGycm. Automatic exposure control utilized for a dose reduction. FINDINGS: The heart is upper limits of normal in size. There is suggestion of a small posterior basilar pericar dial effusion which may have some intermediate density. Minimal coronary vessel calcifications are pr esent. Ascending aorta is ectatic at 3.6 cm. There is conventional arterial vessel branching anatomy. No thoracic lymphadenopathy. There is only a small 7 mm focus of air within the mediastinum along the right posterolateral tracheal margin at the level of the thoracic inlet, axial image 9 and coronal i mage 39. There may be some vessels in this region and intravenous air is possible. Otherwise, no medi astinal air is seen or abnormal esophageal wall thickening There is a trace right pleural effusion with mild adjacent atelectasis. Some dependent atelectasis is noted on the left. There is mild centrilobular emphysema in the lungs. A 6 mm nodular density subple ural region of the posterior left upper lobe axial image 21 suspected to represent an area of nodular atelectasis but can be reassessed at follow-up. Otherwise, no consolidation or pleural effusion. Add itional curvilinear bands of atelectasis at the left base. Visualized upper abdomen shows a 1.5 cm hypodense lesion anterior left kidney and possible partially visualized 1.8 cm solid mass in the posterior midpole right kidney, axial image 77 and coronal image 61. Bones: Endplate spondylosis mid to lower thoracic spine. No osseous destructive process. Normal varia nt of a sternal foramina. IMPRESSION: 1. Small posterior basilar pericardial effusion which may have some intermediate density. Given the p atient's cardiac procedure, some inadvertent blood in the pericardial sac is possible. 2. A small 7 mm focus of pneumomediastinum. This focus of air is present at the thoracic inlet along the right posterolateral tracheal margin. There may be some vessels in this region and intravenous ai r is favored. No additional suspicious mediastinal air especially in close approximation to the esoph blair. Follow-up as clinically indicated. 3. Trace right pleural effusion with adjacent passive atelectasis. 4. COPD with mild emphysema. A 6 mm subpleural pulmonary nodule posterior left upper lobe is suspecte d to represent an area of nodular atelectasis but can be reassessed in 6 months time. 5. Possible solid mass, partially visualized in the posterior right kidney. An additional 1.5 cm hypo dense lesion in the left kidney is indeterminate. Recommend renal ultrasound for further evaluation. If ultrasound remains equivocal, further cross-sectional evaluation would be warranted.
[2017-03-10] MEDS: METOPROLOL TARTRATE 12.5 MG TAB PO SCH (07:55)
[2017-03-10] MEDS: COLCHICINE 0.6 MG TAB PO SCH (07:55)
--- NOTE | 2017-03-10 07:55 | P.DS ---
Providers Attending physician: Shyam Benavidez Primary care physician: Charlotte [facility] Hospital Course: Patient is back in an atrial tachycardia, organized. He underwent antral isolation of the right-sided veins the left-sided veins were not ablated completely on account of the presence of the esophagus on the posterior antrum. Since the esophagus could not be moved a safe distance away, it was unsafe to proceed with complete antral isolation of the left-sided veins using or frequency ablation He still continues to have a discomfort in the upper chest but his swallowing is a lot better On examination His blood pressures 111/67 mmHg pulse rate is in the 70s temperature is 97.9F No rub no gallop or no murmurs He is tachycardic Abdomen is soft nontender Extremities warm no edema Groins have healed well no hematoma Impression AV amilcar reentrant tachycardia status post ablation several years back Atrial flutter status post successful ablation Atrial fibrillation with pulmonary vein isolation of the right-sided veins and the anterior aspect of the left-sided veins Extreme left esophagus that could not be definitively a safe distance away from the posterior antrum of the left-sided veins and therefore to avoid the risk of atrial esophageal fistula, vein was not completely isolated Suggest CT of the chest with contrast to evaluate the mediastinum and the esophagus especially since he continues to have chest pain, look for mediastinal air and esophageal injury. Some RF lesions were applied to the posterior left PV antrum Increase flecainide 100 mg twice daily Metoprolol tartrate 25 mg twice daily Continue anticoagulation He may go home today if his chest CT is within normal limits Plan - Discharge Summary Discharge Medication List Metoprolol Tartrate [Lopressor] 12.5 mg PO BID #60 tab 06/17/16 [Rx] Flecainide Acetate 75 mg PO BID 11/12/16 [History] Temazepam [Restoril] 15 mg PO HS PRN 11/12/16 [History] Rivaroxaban [Xarelto] 20 mg PO DAILY 03/05/17 [History]
[2017-03-10] MEDS: FAMOTIDINE 20 MG TAB PO SCH (07:56)
[2017-03-10] MEDS ORDERED: FLECAINIDE 50 MG TAB PO SCH (09:00)
[2017-03-10 10:24] VITALS: BP 109/57; TEMP 99.3
== END 2017-03-10 11:00 | disposition home or self-care (01) ==
LOC: CATHEP 06:14 → 6SEL 13:30 → CATHEP 03-10 11:00
PROVIDERS: ATTEND Internal Medicine Clinical Cardiac Electrophysiology
DX: I48.0 Paroxysmal atrial fibrillation (principal); I48.92 Unspecified atrial flutter; I47.1 Supraventricular tachycardia; R07.89 Other chest pain; I31.3 Pericardial effusion (noninflammatory); J98.2 Interstitial emphysema; J90 Pleural effusion, not elsewhere classified; J44.9 Chronic obstructive pulmonary disease, unspecified; R93.422 Abnormal radiologic findings on diagnostic imaging of left kidney; R93.421 Abnormal radiologic findings on diagnostic imaging of right kidney; G47.33 Obstructive sleep apnea (adult) (pediatric); I10 Essential (primary) hypertension; E78.5 Hyperlipidemia, unspecified; Z82.49 Family history of ischemic heart disease and other diseases of the circulatory system; F17.210 Nicotine dependence, cigarettes, uncomplicated; Z79.01 Long term (current) use of anticoagulants; Z79.899 Other long term (current) drug therapy
CPT/HCPCS: 85347; 93623; 93662; 93613; 93656; 93657; 80048; 85025; 71260; C1894 ×3; C1769 ×3; C1730 ×3; C1893; C1759; C1732; J2001; J1644 ×2; Q9967 ×2; J0131

== ENCOUNTER → 2017-04-09 | Outpatient (CLI) | payer BC ==
[2017-04-09 15:44] LABS: Blood Urea Nitrogen 15 mg/dL (9-20); Non-African American GFR(MDRD) >60 (>60 ml/min/1.73 sqM)
--- NOTE | 2017-04-09 16:28 | CT ---
EXAMINATION TYPE: CT abdomen pelvis wo/w con DATE OF EXAM: 04/09/2017 COMPARISON: NONE HISTORY: Abnormal findings on ct of chest. No complaints at time of scan. CT DLP: 2485.40 mGycm CONTRAST: CT scan of the abdomen and pelvis is performed with Oral Contrast and without and with IV Contrast, p atient injected with 100 mL of Omnipaque 300. FINDINGS: LUNG BASES-: No visible nodule. No infiltrate. Pectus excavatum deformity anterior chest wall. LIVER/GB: No calcified gallstones. No space occupying hepatic lesion. Biliary tree is of normal ca liber. PANCREAS: No inflammation. No distinct mass. SPLEEN: No splenic enlargement. No lesion seen. ADRENALS: No nodule. No thickening. KIDNEYS/BLADDER: No hydronephrosis. No nephrolithiasis. KIDNEYS: There is a 2.1 x 2.7 cm solid mass mid to upper pole right kidney at its posterior cortex. Renal cell carcinoma is not excluded. There is an additional exophytic hypoattenuating lesion midpole left kidney anterior cortex which measures 1.3 x 1.7 cm. Hounsfield unit measurement is 12:30 on both the unenhanced and postcontrast enhanced p ortions of the study. This could reflect a complex cyst however further evaluation with MRI would be of value. No additional renal lesions are seen. Urinary bladder is unremarkable. BOWEL: Normal appendix. Normal bowel caliber. No inflammation. GENITAL ORGANS: No gross abnormality. LYMPH NODES: No greater than 1cm abdominal or pelvic lymph nodes are appreciated. AORTA: No significant abnormality. OSSEOUS STRUCTURES: Vacuum disc L5-S1. Schmorl node formation. OTHER: No significant additional abnormality is seen. IMPRESSION: 1. Suspect small right-sided renal cell carcinoma. 2. Nonspecific lesion left kidney as discussed above could reflect a complex cyst. Cystic neoplasm is not excluded. Further evaluation with MRI is advised.
== END | disposition home or self-care (01) ==
LOC: RADCTMAIN 15:13
PROVIDERS: ATTEND Urology
DX: N28.89 Other specified disorders of kidney and ureter (principal)
CPT/HCPCS: 82565; 84520; 74178; 36415; Q9967

== ENCOUNTER → 2017-05-17 | Outpatient (CLI) | payer BC ==
[2017-05-17 13:39] LABS: Basophils # (A) 0.1 k/uL (0-0.2); Basophils % (A) 1 %; CH 31.9; CHCM 33.6; Eosinophils # (A) 0.3 k/uL (0-0.7); Eosinophils % (A) 3 %; HDW 2.27; Luc # (Auto) 0.18; Luc % (Auto) 2; Lymphocytes # (A) 1.9 k/uL (1.0-4.8); Lymphocytes % (A) 23 %; MCH 32.3 pg (25.0-35.0); MCV 95.1 fL (80.0-100.0); Monocytes # (A) 0.4 k/uL (0-1.0); Monocytes % (A) 5 %; Neutrophils # (A) 5.5 k/uL (1.3-7.7); Neutrophils % (A) 66 %; RBC 4.62 m/uL (4.30-5.90); RDW 13.2 % (11.5-15.5); WBC 8.2 k/uL (3.8-10.6); WBC (Perox) 7.99
--- NOTE | 2017-05-17 14:00 | XR ---
EXAMINATION TYPE: XR chest 2V DATE OF EXAM: 05/17/2017 COMPARISON: Prior chest x-ray 11/12/2016 HISTORY: Presurgical TECHNIQUE: Frontal and lateral views of the chest are obtained on 4 images. FINDINGS: There is no focal air space opacity, pleural effusion, or pneumothorax seen. The cardiac silhouette size is within normal limits. The osseous structures are intact. IMPRESSION: No acute cardiopulmonary process.
[2017-05-17 14:18] LABS: Appearance,Urine Clear (Clear); Bilirubin,Urine Negative (Negative); Glucose,Urine (UA) Negative (Negative); Ketones,Urine Negative (Negative); Leukocyte Esterase,Urine Negative (Negative); Nitrite,Urine Negative (Negative); Protein,Urine Negative (Negative); Specific Gravity,Urine 1.016 (1.001-1.035); UA Billing (MACRO vs. MICRO) CHEM; Urobilinogen,Urine <2.0 mg/dL (<2.0)
--- NOTE | 2017-05-17 14:30 | XR ---
Abdomen HISTORY: Presurgical Frontal view of the abdomen on [address] abdomen pelvis 04/09/2017 Phleboliths are noted within the pelvis. There is no bowel obstruction or pneumoperitoneum. Bone mine ralization is maintained. Lung bases are clear. Degenerative disc changes are present in the visualiz ed spine. Patient's right renal mass is not evident on plain film. Vascular calcifications are presen t. IMPRESSION: No acute abnormality.
[2017-05-17 14:32] LABS: ALT 36 U/L (21-72); AST 24 U/L (17-59); Alkaline Phosphatase 90 U/L (38-126); Blood Urea Nitrogen 17 mg/dL (9-20); Calcium 9.7 mg/dL (8.4-10.2); Carbon Dioxide 27 mmol/L (22-30); Glucose 106 mg/dL (74-99); Non-African American GFR(MDRD) >60 (>60 ml/min/1.73 sqM); Potassium 5.1 mmol/L (3.5-5.1); Sodium 141 mmol/L (137-145); Total Bilirubin 0.6 mg/dL (0.2-1.3); Total Protein 7.1 g/dL (6.3-8.2)
[2017-05-17 14:35] LABS: Anion Gap 10 mmol/L; Chloride 104 mmol/L (98-107)
== END | disposition home or self-care (01) ==
LOC: RADXRMAIN 12:32
PROVIDERS: ATTEND Urology
DX: Z01.818 Encounter for other preprocedural examination (principal); C64.1 Malignant neoplasm of right kidney, except renal pelvis
CPT/HCPCS: 36415; 71020; 74000; 80053; 81003; 85025

== ENCOUNTER 2017-05-26 06:39 | Inpatient (IN) | payer BC ==
[2017-05-20 12:22] VITALS: BMI 27.7
[~2017-05-26 06:39] MED LIST: DEXAMETHASONE SOD PHOSPHATE 10 MG/ML 1 ML VIAL IV ONE; HYDROmorphone 1 MG/ML 1 ML SYRINGE IVP PRN; LIDOCAINE 1% 20 ML VIAL (10MG/ML) FOR IV START INTRADERMA PRN; MIDAZOLAM 2 MG/2 ML VIAL IV PRN; Pre Op ABX Message 1 EACH MISC MISCELLANE ONE; SCOPOLAMINE 1.5MG/72HR PATCH TRANSDERM ONE; fentaNYL (PF) 50 MCG/ML 2 ML AMP IVP PRN
[2017-05-26] MEDS: LACTATED RINGERS 1,000 ML IV SCH ×2 (07:13→08:22)
[2017-05-26] MEDS: ONDANSETRON 4 MG/2 ML VIAL IVP ONE ×2 (07:20→07:21)
[2017-05-26] MEDS ORDERED: GLYCOPYRROLATE 0.2 MG/ML 2 ML VIAL ONE (08:23)
[2017-05-26] MEDS ORDERED: fentaNYL (PF) 50 MCG/ML 2 ML AMP ONE (08:23)
[2017-05-26] MEDS ORDERED: SUCCINYLCHOLINE CHLORIDE 100 MG/5 ML SYR IV ONE (08:23)
[2017-05-26] MEDS ORDERED: LIDOCAINE 1% INJ 10MG/ML (20 ML MDV) ONE (08:23)
[2017-05-26] MEDS ORDERED: ROCURONIUM BROMIDE 10 MG/ML 10 ML VIAL IV ONE (08:23)
[2017-05-26] MEDS ORDERED: PROPOFOL 10 MG/ML 20 ML VIAL IV ONE (08:23)
[2017-05-26] MEDS ORDERED: MIDAZOLAM 2 MG/2 ML VIAL ONE (08:23)
[2017-05-26] MEDS ORDERED: NEOSTIGMINE 1 MG/ML 10 ML VIAL ONE (08:23)
[2017-05-26] MEDS ORDERED: LACTATED RINGERS 1,000 ML IV ONE ×3 (09:06→11:08)
[2017-05-26] MEDS ORDERED: ONDANSETRON 4 MG/2 ML VIAL IVP PRN (09:06)
[2017-05-26] MEDS ORDERED: NALOXONE 0.4 MG/ML 1 ML VIAL IV PRN (09:06)
[2017-05-26] MEDS ORDERED: diphenhydrAMINE 50 MG/ML 1 ML VIAL IVP PRN (09:06)
[2017-05-26] MEDS ORDERED: TEMAZEPAM 15 MG CAP PO PRN (10:26)
[2017-05-26] MEDS: BUPIVACAINE (PF) 0.5% 31.3 ML, HYDROMORPHONE (PF) 5 MG in SODIUM CHLORIDE 0.9% 218 ML EPIDURAL PRN ×2 (10:37→11:08)
--- NOTE | 2017-05-26 10:38 | P.OP ---
Date of Procedure: 05/26/17 Preoperative Diagnosis: Atypical right renal mass Postoperative Diagnosis: Solid right renal mass Procedure(s) Performed: Right renal exploration, right radical nephrectomy Implants: Anesthesia: GETA, epidural Surgeon: Eagle Carrillo Room Manager #1: Jesus Duarte Estimated Blood Loss (ml): 50 Pathology: other (Right kidney) Condition: stable Disposition: PACU Indications for Procedure: The patient is a 47-year-old gentleman who had a coincidentally identified right renal mass. The mass 3-4 cm posterior and somewhat cortical in the mid kidney. The mass was worrisome for a solid component. Discussed options including partial versus radical nephrectomy, freezing, laparoscopic versus open. Chosen open surgical procedure. The plan is to do an exploration and if possible partial nephrectomy Operative Findings: Description of Procedure: She was brought to the operating suite and given an epidural followed by successful general endotracheal anesthesia. A Medina catheters introduced sterilely. A sterile prep and drape was administered. A right subcostal incision is made. After adequate retraction the colon was reflected medially. [place] maneuver is performed within the duodenum medially. To get control of the vessels were either a partial or radical nephrectomy. I identified the vena cava and clean the vena cava off to to expose the gonadal vein which is taken between 2-0 silk ties and then the right renal vein. A 20 ties is placed but not tied around this vessel. I then identify the right renal artery or inferior to the the renal vein and placed a 20 tied, non-tied around it. I then dissect Gerotas and perirenal fat off the kidney circumferentially and completely. I identify the mass in the midportion of the kidney posteriorly. It is distinctly solid. Manually extends deep into the hilum. I re-review the CAT scan and given the depth of penetration and the fact that and indeed is solid I elect to do a radical nephrectomy rather than a partial nephrectomy. I thus doubly tie the renal artery with a 2-0 silk suture ligature and 2-0 silk tie. I then doubly tie the renal vein with the same 2-0 silk suture ligature and 2-0 silk ties. The artery and vein are then transected. I then dissect the rest of the lymph amilcar tissue off the hilum using hemoclips. I March inferior freeing the kidney off the body wall. I then take the ureter between 20 ties. The kidneys delivered from the wound. I inspect the kidney on the back table. The kidney tumor extends deep into the renal hilum. With Fresh gloves the wound is closed with running #1 Vicryl. The skin is stapled the patient's awake and returned recovery in good condition. Blood loss is 50 mL. The patient tolerated the procedure well and was awake and returned recovery room in good condition.
[2017-05-26 12:03] LABS: Anion Gap 7 mmol/L; Carbon Dioxide 26 mmol/L (22-30); Chloride 105 mmol/L (98-107); Glucose 134 mg/dL (74-99); Non-African American GFR(MDRD) >60 (>60 ml/min/1.73 sqM); Sodium 138 mmol/L (137-145)
[2017-05-26 12:10] LABS: Blood Urea Nitrogen 16 mg/dL (9-20); Potassium 5.8 mmol/L (3.5-5.1)
[2017-05-26] MEDS: METOPROLOL TARTRATE 25 MG TAB PO SCH (22:02)
[2017-05-26] MEDS: FLECAINIDE 50 MG TAB PO SCH (22:02)
[2017-05-27] MEDS: DEXTROSE 5%-0.45% NACL 1,000 ML IV SCH ×3 (00:56→16:49)
--- NOTE | 2017-05-27 06:44 | P.PN ---
Subjective The patient underwent a right radical nephrectomy for solid renal mass yesterday. He did well overnight. His vital signs are stable and urine output is good. His wound is dry. His abdomen is soft. His pain is under control. I will back off a little on his epidural is his right leg is numb. I will continue clear liquids. He will ambulate. Objective - Vital Signs Vital signs: Vital Signs Temp 96.6 F L 05/27/17 01:41 Pulse 67 05/27/17 01:41 Resp 16 05/27/17 01:41 BP 105/64 05/27/17 01:41 Pulse Ox 97 05/27/17 01:41 Intake & Output 05/26/17 05/26/17 05/27/17 06:59 18:59 06:59 Intake Total 2210 1560 Output Total 330 2000 Balance 1880 -440 Weight 108.862 kg Intake: IV 2210 Intake, IV Titration 1080 Amount Bupivacaine (Pf) 0.5% 31. 80 3 ml Hydromorphone (Pf) 5 mg In Sodium Chloride 0. 9% 218 ml @ Per Protocol EPIDURAL .Q0M PRN Rx#: [id number] Lactated Ringers 1,000 ml 1000 As IV .STK-MED ONE Rx#: [id number] Oral 480 Output: Urine 300 2000 Estimated Blood Loss 30 Other: Voiding Method Indwelling Catheter Indwelling Catheter - Labs CBC & Chem 7: 05/26/17 10:27 Labs: Abnormal Lab Results - Last 24 Hours (Table) 05/26/17 Range/Units 10:27 Potassium 5.8 H (3.5-5.1) mmol/L Glucose 134 H (74-99) mg/dL
[2017-05-27] MEDS: FLECAINIDE 50 MG TAB PO SCH ×2 (08:02→21:22)
[2017-05-27] MEDS: METOPROLOL TARTRATE 25 MG TAB PO SCH ×2 (08:02→21:21)
--- NOTE | 2017-05-27 08:44 | P.PN ---
Progress Note - Text Patient is satus partial nephrectomy post day #1. Epidural placed for control of post op pain. Epidural site looks fine. Bupivicaine 0.625% with dilaudid 20ug at rate of 8cc per hour. Pain control excellent, VAS 0/10. Patient stood up this morning without significant weakness. Will continue current therapy and follow.
[2017-05-27] MEDS: BUPIVACAINE (PF) 0.5% 31.3 ML, HYDROMORPHONE (PF) 5 MG in SODIUM CHLORIDE 0.9% 218 ML EPIDURAL PRN (09:03)
[2017-05-28] MEDS: DEXTROSE 5%-0.45% NACL 1,000 ML IV SCH ×4 (06:32→19:53)
[2017-05-28] MEDS: LACTATED RINGERS 1,000 ML IV SCH ×2 (06:33→08:16)
--- NOTE | 2017-05-28 07:40 | P.PN ---
Progress Note - Text The patient is afebrile and normotensive. He denies any shortness of breath. He has been tolerating liquids and wishes to advance his diet. His urine output is adequate. His incision is dry he has minimal abdominal pain with the epidural. Impression: Good recovery following right radical nephrectomy. Plan: The patient's epidural catheter will be discontinued and later today his Medina catheter will be removed. His diet will and activity will be advanced. He may be ready for discharge tomorrow.
[2017-05-28] MEDS ORDERED: Acetaminophen-Codeine 300-30mg TAB PO PRN ×2 (07:43)
--- NOTE | 2017-05-28 08:01 | P.PN ---
Progress Note - Text Date: 05/28/2017 Time: 713 The patient is status post, right partial nephrectomy, postoperative day number 2 The patient has no complaints of nausea vomiting or headache. The patient does not complain of any lower extremity numbness or weakness. The epidural is running at 6 mL per hour. VAS 1-10.The epidural will be maintained and adjusted as needed.
[2017-05-28] MEDS: METOPROLOL TARTRATE 25 MG TAB PO SCH ×2 (09:05→20:21)
[2017-05-28] MEDS: FLECAINIDE 50 MG TAB PO SCH ×2 (09:05→20:21)
[2017-05-29] MEDS: DEXTROSE 5%-0.45% NACL 1,000 ML IV SCH (04:10)
[2017-05-29 07:54] VITALS: BP 133/79; PULSE 68; RESP 17; TEMP 97
[2017-05-29] MEDS: METOPROLOL TARTRATE 25 MG TAB PO SCH (08:39)
[2017-05-29] MEDS: LACTATED RINGERS 1,000 ML IV SCH (08:39)
[2017-05-29] MEDS: FLECAINIDE 50 MG TAB PO SCH (08:39)
--- NOTE | 2017-05-29 08:58 | P.DS ---
Providers Date of admission: 05/26/17 06:39 Attending physician: Eagle Carrillo Primary care physician: [facility] Course: The patient is a 47-year-old male was noted to have a right renal mass on computed tomography scan. The patient was admitted for the purpose of possible partial nephrectomy as there was concern that the mass was malignant. The patient underwent right renal exploration under general/epidural anesthesia on and at that time it appeared that the mass extended deeply into the kidney. The patient was treated with right radical nephrectomy. His epidural catheter and urethral catheter was removed on the second day postop and he was discharged on the third day postop. The patient was tolerating a regular diet, fully ambulatory and had minimal discomfort. His incision appeared to be healing well. His pathology report was pending at the time of discharge. Procedures: Right radical nephrectomy 05/26/2017 Patient Condition at Discharge: Good Plan - Discharge Summary New Discharge Prescriptions: New Acetaminophen-Codeine 300-30mg [Tylenol w/codeine #3] 1 tab PO Q6H PRN #10 tablet PRN Reason: Pain No Action Temazepam [Restoril] 15 mg PO HS PRN PRN Reason: Insomnia Rivaroxaban [Xarelto] 20 mg PO DAILY Flecainide [Tambocor] 100 mg PO Q12HR #1 tablet Metoprolol Tartrate 25 mg PO BID #1 tab Discharge Medication List Temazepam [Restoril] 15 mg PO HS PRN 11/12/16 [History] Rivaroxaban [Xarelto] 20 mg PO DAILY 03/05/17 [History] Flecainide [Tambocor] 100 mg PO Q12HR #1 tablet 03/10/17 [Rx] Metoprolol Tartrate 25 mg PO BID #1 tab 03/10/17 [Rx] Acetaminophen-Codeine 300-30mg [Tylenol w/codeine #3] 1 tab PO Q6H PRN #10 tablet 05/29/17 [Rx] Follow up Appointment(s)/Referral(s): Eagle Carrillo MD [STAFF PHYSICIAN] - 06/02/17 Discharge Disposition: HOME SELF-CARE
--- NOTE | 2017-06-04 09:51 | CDI ---
In responding to this query, please exercise your independent professional judgment. The [facility] Coding Staff and Clinical Documentation Specialists appreciate your assistance in clarifying documentation, maintaining compliance with coding guidelines, accurately documenting patients condition and capturing severity of illness. The fact that a question is asked does not imply that any particular answer is desired or expected. Communication forms are a method of clarifying documentation and are not made part of the Legal Health Record. Thank you in advance for your clarification. Last Revision, January 2016 Denis Douglas [address] [facility] [place] [address] Documentation Clarification Form Date: 06/04/2017 9:37:00 AM From: Amayarocky Holliday Admit Date: 05/26/2017 6:39:00 AM Patient Name: Jose Sandy Visit Number: [id number] Discharge Date: 05/29/17 Dr. Eagle Carrillo The final diagnosis of the pathology report states : kidney right, nephrectomy: Renal cell carcinoma, clear cell. Patient history/risk factors: atrial fibrillation Clinical Indicators: left flank pain, Chest CT scan revealed small solid right renal mass. Treatment: Right radical nephrectomy In your professional opinion, do you agree with the pathology report specifying Renal cell carcinoma, clear cell ? Yes No Other (please specify) Unable to determine Please document addendum in your discharge summary in order to capture severity of illness and risk of mortality. Include clinical findings that support your diagnosis. FYI: Press F11 to launch patient chart If you have a question about this query, please contact Marlen Adams, Lift Builder [employer], Denis Douglas at [phone] betweeen 8am and 5pm. LINH
--- NOTE | 2017-06-08 08:32 | CDI ---
In responding to this query, please exercise your independent professional judgment. The [facility] Coding Staff and Clinical Documentation Specialists appreciate your assistance in clarifying documentation, maintaining compliance with coding guidelines, accurately documenting patients condition and capturing severity of illness. The fact that a question is asked does not imply that any particular answer is desired or expected. Communication forms are a method of clarifying documentation and are not made part of the Legal Health Record. Thank you in advance for your clarification. Last Revision, January [address] [facility] [place] [address] Documentation Clarification Form Date: 06/04/2017 9:37:00 AM From: Amayarocky Holliday Admit Date: 05/26/2017 6:39:00 AM Patient Name: Jose Sandy Visit Number: [id number] Discharge Date: 05/29/17 Dr. Jesus Duarte The final diagnosis of the pathology report states : kidney right, nephrectomy: Renal cell carcinoma, clear cell. Patient history/risk factors: atrial fibrillation Clinical Indicators: left flank pain, Chest CT scan revealed small solid right renal mass. Treatment: Right radical nephrectomy In your professional opinion, do you agree with the pathology report specifying Renal cell carcinoma, clear cell ? Yes No Other (please specify) Unable to determine Please document addendum in your discharge summary in order to capture severity of illness and risk of mortality. Include clinical findings that support your diagnosis. FYI: Press F11 to launch patient chart If you have a question about this query, please contact Marlen Adams, Digital Photographic Printer, Denis Douglas at [phone] betwetimothy 8am and 5pm. LINH
--- NOTE | 2017-06-25 08:41 | P.PN ---
Progress Note - Text Addendum: The patient undrwent a radical nephrectomy right 05/26/2017. The path came back after discharge as clear cell, renal cell carcinoma. Please refer to the path on 05/29/2017
== END 2017-05-29 09:55 | disposition home or self-care (01) | DRG 658 ==
LOC: 2ORMAIN 06:39 → 3SUR 10:41
PROVIDERS: ADMIT Urology; ATTEND Urology
PROC: 0TT00ZZ Resection of Right Kidney, Open Approach (ICD-10-PCS; principal; 2017-05-26 08:30)
DX: C64.1 Malignant neoplasm of right kidney, except renal pelvis (principal); I48.91 Unspecified atrial fibrillation; Z79.01 Long term (current) use of anticoagulants; Z79.899 Other long term (current) drug therapy
CPT/HCPCS: 80048; 86850; 86900; 86901; 88307

== ENCOUNTER → 2017-12-03 | Outpatient (CLI) | payer BC ==
[2017-12-03 17:32] LABS: Blood Urea Nitrogen 21 mg/dL (9-20)
--- NOTE | 2017-12-04 21:16 | CT ---
EXAMINATION TYPE: CT abdomen wo/w con DATE OF EXAM: 12/03/2017 COMPARISON: CT abdomen and pelvis April 09, 2017 HISTORY: Follow up for kidney CA. History of right-sided nephrectomy. CT DLP: 1978.9 mGycm, Automated Exposure Control for Dose Reduction was Utilized. CONTRAST: CT scan of the abdomen is performed with oral and without and with IV Contrast, patient injected with 100ml mL of Omnipaque 300. FINDINGS: LUNG BASES: Coronary artery calcification RCA distribution is noted. Pectus excavatum deformity redem onstrated. LIVER/GB: No significant abnormality is appreciated. PANCREAS: No significant abnormality is seen. SPLEEN: No significant abnormality is seen. ADRENALS: No significant abnormality is seen. KIDNEYS: Right kidney is now surgically absent. Noncontrast images show no left-sided renal calculi. Post contrast images show cortical medullary uptake and excretion from left kidney with partially exo phytic hypodense lobulated 1.9 x 1.7 cm nonenhancing lesion still favoring simple cyst despite being slightly larger versus prior study at upper to mid pole level. Hounsfield units average 28 noncontras t study not significantly changed from prior. No suspicious nodularity is identified. No new solid or cystic lesions are present. BOWEL: Some diverticula are seen in visualized left colon. LYMPH NODES: No greater than 1cm abdominal or pelvic lymph nodes are appreciated. OSSEOUS STRUCTURES: There is multilevel spurring in visualized spine. There is facet arthropathy lowe r lumbar levels. OTHER: Scar tissue anterior right abdominal wall is now identified. There is mild calcified plaque di stal abdominal aorta. IMPRESSION: Anterior upper to mid pole left renal lesion is slightly larger in size versus prior stud y without definitive suspicious nodularity or enhancement. Still favor benign etiology or enlarging l obulated otherwise simple cyst. No new suspicious left-sided renal lesions seen. Interval right-sided nephrectomy with without suspicious residual or recurrent tissue.
== END | disposition home or self-care (01) ==
LOC: RADCTMAIN 16:28
PROVIDERS: ATTEND Family Medicine
DX: C64.1 Malignant neoplasm of right kidney, except renal pelvis (principal); N28.9 Disorder of kidney and ureter, unspecified; Z90.5 Acquired absence of kidney
CPT/HCPCS: 82565; 84520; 74170; 36415; Q9967

== ENCOUNTER 2018-11-05 21:58 | Emergency (ER) | payer BC ==
[2018-11-05 22:09] VITALS: RESP 18
--- NOTE | 2018-11-05 22:35 | ED ---
General Adult HPI - General Chief complaint: Fall Stated complaint: Fall Time Seen by Provider: 11/05/18 22:15 Source: patient, RN notes reviewed Mode of arrival: wheelchair Limitations: no limitations - History of Present Illness Initial comments: Patient is a pleasant 48-year-old male presenting to the emergency department following a fall. Incident occurred 1 hour ago. Patient admits to drinking up to 12 beers earlier. Patient states he slipped and fell down a proximally 6 steps. Patient did lose consciousness. There was another person was present at the time that feels patient may have loss consciousness up to 5 minutes. Patient states he feels fine at this point and has no complaints except for chips to us to front teeth. Patient denies headache. Patient denies confusion. No neck or back pain. No chest pain or dyspnea. No abdominal pain. No extremity injury or concern for fracture. Patient denies taking any blood thinners. - Related Data Previous Rx's Medication Instructions Recorded Penicillin V Potassium [Pen Vee K] 500 mg PO QID #28 tablet 11/06/18 Allergies Allergy/AdvReac Type Severity Reaction Status Date / Time No Known Allergies Allergy Verified 11/05/18 22:17 Review of Systems ROS Statement: Those systems with pertinent positive or pertinent negative responses have been documented in the HPI. ROS Other: All systems not noted in ROS Statement are negative. Constitutional: Denies: fever Eyes: Denies: eye pain ENT: Denies: ear pain Respiratory: Denies: cough, dyspnea Cardiovascular: Denies: chest pain Endocrine: Denies: fatigue Gastrointestinal: Denies: abdominal pain Genitourinary: Denies: dysuria Musculoskeletal: Denies: back pain Skin: Denies: rash Neurological: Denies: headache, weakness, confusion Past Medical History Past Medical History: Atrial Flutter, Sleep Apnea/CPAP/BIPAP Additional Past Medical History / Comment(s): See Dr Benavidez's H&P,uses cpap, varicose veins History of Any Multi-Drug Resistant Organisms: None Reported Past Surgical History: Cardiac Ablation, Heart Catheterization Additional Past Surgical History / Comment(s): cardioversion Past Anesthesia/Blood Transfusion Reactions: No Reported Reaction Past Psychological History: No Psychological Hx Reported Smoking Status: Current every day smoker Past Alcohol Use History: Occasional Past Drug Use History: None Reported - Past Family History Mother Family Medical History: Cancer Additional Family Medical History / Comment(s): Breast Father Family Medical History: Myocardial Infarction (MT) Sister(s) Family Medical History: Congestive Heart Failure (CHF) Brother(s) Family Medical History: Coronary Artery Disease (CAD) Additional Family Medical History / Comment(s): CABG General Exam Limitations: no limitations General appearance: alert, in no apparent distress Head exam: Present: atraumatic Eye exam: Present: normal appearance, PERRL, EOMI ENT exam: Present: normal oropharynx, other (He should does have chips to his to upper central incisors.) Neck exam: Present: normal inspection. Absent: tenderness Respiratory exam: Present: normal lung sounds bilaterally. Absent: chest wall tenderness Cardiovascular Exam: Present: regular rate, normal rhythm GI/Abdominal exam: Present: soft. Absent: tenderness Extremities exam: Present: normal inspection, full ROM. Absent: tenderness Back exam: Present: normal inspection. Absent: tenderness, vertebral tenderness Neurological exam: Present: alert, oriented X3, CN II-XII intact. Absent: motor sensory deficit Expanded Neurological exam: Present: protecting the airway Patient oriented to: Present: person, place, time Cranial nerves: EOM's Intact: Normal Sensory exam: Upper Extremity Light Touch: Normal, Lower Extremity Light Touch: Normal Motor strength exam: RUE: 5, LUE: 5, RLE: 5, LLE: 5 Eye Response: (4) open spontaneously Motor Response: (6) obeys commands Verbal Response: (5) oriented Psychiatric exam: Present: normal affect, normal mood Skin exam: Present: normal color Course Vital Signs 11/05/18 22:05 Temperature 97.8 F Pulse Rate 67 Respiratory 18 Rate Blood Pressure 135/94 O2 Sat by Pulse 96 Oximetry - Reevaluation(s) Reevaluation #1: 11/05/18 22:35 Patient is informed of need to follow-up with dentist. Medical Decision Making - Medical Decision Making Patient reevaluated and resting comfortably in bed. Patient is alert and oriented 3 and appropriate. Patient does have friend present. Patient is requesting discharge multiple times. Friend is agreeable to take patient home and observe patient through the night. - Radiology Data Radiology results: report reviewed (ET scan of the brain and cervical spine show no acute process.), image reviewed (Chest and pelvic x-ray show no acute process) Disposition Clinical Impression: Fall, Head injury Disposition: HOME SELF-CARE Condition: Stable Instructions: Head Injury (ED), Acute Dental Trauma (ED) Additional Instructions: Please follow-up with your dentist in the beginning of the week. These follow- up with primary care physician and being the week. Avoid alcohol. Please keep an eye on the patient throughout the night. Return for change in mental status , unarousable, persistent vomiting, confusion, weakness, uncontrolled pain, worsening or changing symptoms or other concerns. Prescriptions: Penicillin V Potassium [Pen Vee K] 500 mg PO QID #28 tablet Is patient prescribed a controlled substance at d/c from ED?: No Referrals: Sheila Ngo DO [Primary Care Provider] - 1-2 days Time of Disposition: 00:24
--- NOTE | 2018-11-05 22:54 | CT ---
EXAMINATION TYPE: CT brain karthikeyan coley DATE OF EXAM: 11/05/2018 COMPARISON: None HISTORY: Syncope CT DLP: 1471.4 mGycm Automated exposure control for dose reduction was used. TECHNIQUE: CT scan of the head and cervical spine are performed without contrast. FINDINGS: Ventricles of normal size. There is no mass effect nor midline shift. There is no sign of intracranial hemorrhage. Calvarium is intact. There is some mucosal thickening in the ethmoid air ce lls. Cervical vertebra have normal alignment. There is mild narrowing and spurring at C5-6 and C6-7. Disc spaces otherwise are normal. The skull base is intact. Posterior elements are intact. IMPRESSION: Negative CT scan of the brain. Ethmoid sinusitis. Mild spondylotic change in the lower cervical spine. No fracture.
--- NOTE | 2018-11-05 22:55 | XR ---
EXAMINATION TYPE: XR pelvis AP view DATE OF EXAM: 11/05/2018 COMPARISON: NONE HISTORY: Pain TECHNIQUE: Single view FINDINGS: The pelvic ring is intact. Proximal femurs and hip joints are intact. Sacroiliac joints elaina ear normal. IMPRESSION: Negative pelvis exam.
--- NOTE | 2018-11-05 22:57 | XR ---
EXAMINATION TYPE: XR chest 1V portable DATE OF EXAM: 11/05/2018 COMPARISON: 05/17/2017 HISTORY: Preop TECHNIQUE: Single frontal view of the chest is obtained. FINDINGS: Heart and mediastinum are normal. Lungs are clear. Diaphragm is normal. Bony thorax is int act. The pulmonary vascularity is normal. IMPRESSION: Normal chest. No change.
[2018-11-06 00:33] VITALS: BP 127/80; PULSE 68; TEMP 97.6
== END 2018-11-06 00:30 | disposition home or self-care (01) ==
LOC: EC 21:58
DX: S09.90XA Unspecified injury of head, initial encounter (principal); I48.92 Unspecified atrial flutter; G47.30 Sleep apnea, unspecified; Z99.89 Dependence on other enabling machines and devices; F17.200 Nicotine dependence, unspecified, uncomplicated; Z95.818 Presence of other cardiac implants and grafts; W10.9XXA Fall (on) (from) unspecified stairs and steps, initial encounter; Y92.009 Unspecified place in unspecified non-institutional (private) residence as the place of occurrence of the external cause
CPT/HCPCS: 72170; 71045; 72125; 70450; 99284; L0120

== ENCOUNTER → 2018-12-08 | Outpatient (CLI) | payer BC ==
--- NOTE | 2018-12-08 12:25 | XR ---
EXAMINATION TYPE: XR chest 2V DATE OF EXAM: 12/08/2018 COMPARISON: 11/05/2018 TECHNIQUE: PA and lateral views submitted. HISTORY: Renal cancer FINDINGS: The lungs are clear and there is no pneumothorax, pleural effusion, or focal pneumonia. Hypertrophic and degenerative change of the spine. Heart is mildly prominent but stable. Biapical pleural thicken ing. Chronic appearing rib deformities involving the mid to lower anterior right rib cage. IMPRESSION: 1. No acute process.
[2018-12-08 20:20] LABS: Albumin 4.2 g/dL (3.80-4.90); Albumin/Globulin Ratio 2.1 (1.20-2.10); Anion Gap 6.2 mmol/L (4.00-12.00); Carbon Dioxide 26.8 mmol/L (21.6-31.8); Potassium 5.4 mmol/L (3.5-5.5); Total Bilirubin 0.4 mg/dL (0.2-1.2); Total Protein 6.2 g/dL (6.2-8.2)
== END | disposition home or self-care (01) ==
LOC: LABWHC1 11:07
PROVIDERS: ATTEND Urology
DX: C64.1 Malignant neoplasm of right kidney, except renal pelvis (principal)
CPT/HCPCS: 36415; 71046; 80053

== ENCOUNTER → 2019-06-20 | Outpatient (CLI) | payer BC ==
[2019-06-20 14:39] LABS: African American GFR (CKD) >90 (>60 ml/min/1.73 sqM); Blood Urea Nitrogen 17 mg/dL (9-20); Non-African American GFR(CKD) 85 (>60 ml/min/1.73 sqM)
--- NOTE | 2019-06-20 15:32 | XR ---
EXAMINATION TYPE: XR chest 2V DATE OF EXAM: 06/20/2019 COMPARISON: Prior chest x-ray 12/08/2018 HISTORY: Renal cancer TECHNIQUE: Frontal and lateral views of the chest are obtained. FINDINGS: There is no focal air space opacity, pleural effusion, or pneumothorax seen. The cardiac silhouette size is within normal limits. The osseous structures are intact. IMPRESSION: No acute cardiopulmonary process.
--- NOTE | 2019-06-20 16:35 | CT ---
EXAMINATION TYPE: CT abdomen pelvis w con DATE OF EXAM: 06/20/2019 COMPARISON: 12/03/2017 HISTORY: Hx RT renal ca. Followup. Hx RT nephrectomy CT DLP: 1892 mGycm Automated exposure control for dose reduction was used. TECHNIQUE: Helical acquisition of images was performed from the lung bases through the pelvis. CONTRAST: Performed with Oral Contrast and with IV Contrast, patient injected with 100 mL of Isovue 300. FINDINGS: LUNG BASES: No significant abnormality is appreciated. LIVER/GB: No significant abnormality is appreciated. PANCREAS: No significant abnormality is seen. SPLEEN: No significant abnormality is seen. ADRENALS: No significant abnormality is seen. KIDNEYS: Post surgical changes of right nephrectomy. Redemonstration of exophytic hypodense lobulated cyst in the superior pole measuring up to 1.9 cm, similar to prior. No new solid or cystic lesions a re identified. FREE AIR: No free air is visualized. RETROPERITONEAL ADENOPATHY: None visualized REPRODUCTIVE ORGANS: No significant abnormality is seen URINARY BLADDER: No significant abnormality is seen. PELVIC ADENOPATHY: Right common iliac lymph node on image 81 measuring 0.9 cm appearing stable when compared to 2017. OSSEOUS STRUCTURES: Multilevel spurring and degenerative changes throughout the thoracic and lumbar spine. BOWEL: No significant abnormality is seen. IMPRESSION: RIGHT NEPHRECTOMY. NO EVIDENCE OF RECURRENCE OR METASTATIC DISEASE. STABLE UPPER TO MID POLE LEFT RENAL LESION FAVOR TO BE CYST.
== END | disposition home or self-care (01) ==
LOC: RADCTMAIN 13:40
PROVIDERS: ATTEND Urology
DX: N28.9 Disorder of kidney and ureter, unspecified (principal); C64.2 Malignant neoplasm of left kidney, except renal pelvis; Z90.5 Acquired absence of kidney
CPT/HCPCS: 82565; 84520; 71046; 74177; 36415; Q9967

== ENCOUNTER 2021-07-04 23:26 | Emergency (ER) | payer BC ==
[2021-07-04 23:32] VITALS: BP 138/84; PULSE 68; RESP 20; TEMP 97.6
--- NOTE | 2021-07-04 23:51 | ED ---
Upper Extremity HPI - General Chief Complaint: Extremity Injury, Upper Stated Complaint: Left shoulder injury Time Seen by Provider: 07/04/21 23:39 Source: patient Mode of arrival: ambulatory Limitations: no limitations - History of Present Illness Initial Comments: This patient is a 51-year-old man who presents with left shoulder pain following a fall at home. Patient states that he was at home one to walk and tripped over his cat. He fell striking his left shoulder. Patient indicates pain at the left clavicle. He states that there is worsening pain if he moves his left arm area it is better with immobilizing his left arm. He denies other injury. Denies head or neck injury or pain. No chest pain or dyspnea. No weakness or numbness of the extremities. MD Complaint: Injury to:: left, shoulder -: minutes(s) Other Injuries: none Handedness: right Place: home Improves With: immobilization Worsens With: movement of extremity Context: fall Associated Symptoms: heard/felt popping sensat - Related Data Previous Rx's Medication Instructions Recorded Penicillin V Potassium [Pen Vee K] 500 mg PO QID #28 tablet 11/06/18 Ibuprofen 800 mg PO TID #20 tablet 07/05/21 Allergies Allergy/AdvReac Type Severity Reaction Status Date / Time No Known Allergies Allergy Verified 07/04/21 23:32 Review of Systems ROS Statement: Those systems with pertinent positive or pertinent negative responses have been documented in the HPI. ROS Other: All systems not noted in ROS Statement are negative. Constitutional: Denies: fever, weakness Eyes: Denies: vision change Respiratory: Denies: cough, dyspnea Cardiovascular: Denies: chest pain, palpitations, syncope Gastrointestinal: Denies: abdominal pain, vomiting Musculoskeletal: Reports: arthralgia. Denies: back pain Skin: Denies: rash Neurological: Denies: headache, weakness, numbness, paresthesias Past Medical History Past Medical History: Atrial Flutter, Sleep Apnea/CPAP/BIPAP Additional Past Medical History / Comment(s): See Dr Benavidez's H&P,uses cpap,varicose veins History of Any Multi-Drug Resistant Organisms: None Reported Past Surgical History: Cardiac Ablation, Heart Catheterization Additional Past Surgical History / Comment(s): cardioversion Past Anesthesia/Blood Transfusion Reactions: No Reported Reaction Past Psychological History: No Psychological Hx Reported Smoking Status: Current every day smoker Past Alcohol Use History: Heavy Past Drug Use History: None Reported - Past Family History Mother Family Medical History: Cancer Additional Family Medical History / Comment(s): Breast Father Family Medical History: Myocardial Infarction ([place]) Sister(s) Family Medical History: Congestive Heart Failure (CHF) Brother(s) Family Medical History: Coronary Artery Disease (CAD) Additional Family Medical History / Comment(s): CABG General Exam Limitations: no limitations General appearance: alert, in no apparent distress Neck exam: Present: normal inspection, full ROM. Absent: tenderness Respiratory exam: Present: normal lung sounds bilaterally. Absent: respiratory distress, wheezes, rales, rhonchi, stridor, chest wall tenderness Cardiovascular Exam: Present: regular rate, normal rhythm, normal heart sounds. Absent: systolic murmur, diastolic murmur, rubs, gallop GI/Abdominal exam: Present: soft. Absent: tenderness Extremities exam: Present: full ROM, tenderness, normal capillary refill, other (Swelling over the left clavicle. Tenderness.) Back exam: Present: normal inspection. Absent: CVA tenderness (R), CVA tenderness (L), vertebral tenderness Neurological exam: Present: alert, oriented X3. Absent: motor sensory deficit Skin exam: Present: warm, dry, intact, normal color. Absent: rash Course Vital Signs 07/04/21 23:28 Temperature 97.6 F Pulse Rate 68 Respiratory 20 Rate Blood Pressure 138/84 O2 Sat by Pulse 100 Oximetry Disposition Clinical Impression: Fracture of clavicle Disposition: HOME SELF-CARE Condition: Good Instructions (If sedation given, give patient instructions): Clavicle Fracture (ED) Prescriptions: Ibuprofen 800 mg PO TID #20 tablet Is patient prescribed a controlled substance at d/c from ED?: No Referrals: Sheila Ngo DO [Primary Care Provider] - 1-2 days Austin Sanchez MD [STAFF PHYSICIAN] - 1-2 days
--- NOTE | 2021-07-05 00:03 | XR ---
EXAMINATION TYPE: XR shoulder complete LT DATE OF EXAM: 07/04/2021 COMPARISON: NONE HISTORY: Fall. Pain. TECHNIQUE: 3 views FINDINGS: There is comminuted displaced fracture of the left clavicle. There is approximate 4 cm infe rior displacement of the lateral major fragment. There is no dislocation at the glenohumeral joint. H umeral head is intact. Scapula appears intact. IMPRESSION: Comminuted acute displaced clavicle fracture.
--- NOTE | 2021-07-05 00:05 | XR ---
EXAMINATION TYPE: XR clavicle LT DATE OF EXAM: 07/04/2021 COMPARISON: NONE HISTORY: Shoulder pain. TECHNIQUE: 2 views FINDINGS: There is comminuted fracture of the mid shaft of the left clavicle. There is a 4 cm inferio r displacement of the lateral major fragment. The AC joint space is normal. IMPRESSION: Comminuted displaced clavicle fracture.
== END 2021-07-05 00:46 | disposition home or self-care (01) ==
LOC: EC 23:26
DX: S42.022A Displaced fracture of shaft of left clavicle, initial encounter for closed fracture (principal); F17.200 Nicotine dependence, unspecified, uncomplicated; W01.10XA Fall on same level from slipping, tripping and stumbling with subsequent striking against unspecified object, initial encounter; Y92.009 Unspecified place in unspecified non-institutional (private) residence as the place of occurrence of the external cause
CPT/HCPCS: 99283

== ENCOUNTER → 2021-07-11 | Outpatient (CLI) | payer BC ==
[2021-07-11 14:44] LABS: Basophils # (A) 0.1 k/uL (0-0.2); Basophils % (A) 2 %; Eosinophils # (A) 0.2 k/uL (0-0.7); Eosinophils % (A) 2 %; HCT 45.9 % (39.0-53.0); HGB 15.8 gm/dL (13.0-17.5); Lymphocytes # (A) 1.6 k/uL (1.0-4.8); Lymphocytes % (A) 18 %; MCH 34.9 pg (25.0-35.0); MCHC 34.5 g/dL (31.0-37.0); Mean Platelet Volume 7.3; Monocytes # (A) 0.4 k/uL (0-1.0); Monocytes % (A) 5 %; Neutrophils # (A) 6.5 k/uL (1.3-7.7); Neutrophils % (A) 73 %; Platelet Count 225 k/uL (150-450); RBC 4.54 m/uL (4.30-5.90); RDW 12.5 % (11.5-15.5); WBC 8.9 k/uL (3.8-10.6)
[2021-07-11 14:51] LABS: Prothrombin Time 10.6 sec (9.0-12.0)
[2021-07-11 15:06] LABS: Potassium 5.1 mmol/L (3.5-5.1)
== END | disposition home or self-care (01) ==
LOC: LABPAT 12:45
PROVIDERS: ATTEND Orthopaedic Surgery
DX: Z01.812 Encounter for preprocedural laboratory examination (principal); S42.002D Fracture of unspecified part of left clavicle, subsequent encounter for fracture with routine healing; X58.XXXD Exposure to other specified factors, subsequent encounter
CPT/HCPCS: 36415; 80051; 85025; 85610

== ENCOUNTER 2021-07-15 07:50 | Day surgery (SDC) | payer BC ==
[2021-07-11 09:03] VITALS: BMI 27.7
--- NOTE | 2021-07-15 06:33 | P.HPOR ---
History of Present Illness H&P Date: 07/10/21 Chief Complaint: Left clavicle fracture 51-year-old [id number] male presents with complaints of left shoulder pain. The patient states that he was at home when he tripped over his cat and fell onto his left shoulder with immediate pain and a snap in her shoulder as well. He presented to the emergency department who took x-rays and found to have a midshaft clavicle fracture. Patient weighs of pain in his left clavicle region complains of pain about the distal end of the clavicle as well. Denies any numbness or tingling he states no weakness in his arm. He states sensation is intact otherwise. He complains of no head injury on the fall. Denies any fevers chills or some breath or chest pain at this time. Review of Systems 14 points review of systems completed and as stated in HPI, all other systems reviewed are negative. Past Medical History Past Medical History: Atrial Flutter, Cancer, Sleep Apnea/CPAP/BIPAP Additional Past Medical History / Comment(s): hx. atrial flutter for 4 yrs.-has had ablation & takes toprol, supposed to use cpap,varicose veins, hx. kidney cancer 4 yrs. ago-had surg., tripped & fell 1 week ago & fx. left clavicle History of Any Multi-Drug Resistant Organisms: None Reported Past Surgical History: Cardiac Ablation, Heart Catheterization Additional Past Surgical History / Comment(s): cardioversion, right nephrectomy Past Anesthesia/Blood Transfusion Reactions: No Reported Reaction Smoking Status: Current every day smoker - Past Family History Mother Family Medical History: Cancer Additional Family Medical History / Comment(s): Breast Father Family Medical History: Myocardial Infarction ([place]) Sister(s) Family Medical History: Congestive Heart Failure (CHF) Brother(s) Family Medical History: Coronary Artery Disease (CAD) Additional Family Medical History / Comment(s): CABG Medications and Allergies Home Medications Medication Instructions Recorded Confirmed Type Ibuprofen [Motrin] 800 mg PO Q8H PRN 07/11/21 07/11/21 History Meloxicam [Mobic] 15 mg PO DAILY 07/11/21 07/11/21 History Metoprolol Succinate (ER) [Toprol 25 mg PO DAILY 07/11/21 07/11/21 History Xl] Allergies Allergy/AdvReac Type Severity Reaction Status Date / Time No Known Allergies Allergy Verified 07/11/21 08:56 Physical Examination Osteopathic Statement: *. No significant issues noted on an osteopathic structural exam other than those noted in the History and Physical/Consult. Patient is alert and oriented 3 appears well-nourished well-hydrated is in no acute distress. They do not appear septic. There is TTP about the left clavicle with brusing ecchymosis and swelling about the right clavicle. There is some skin tenting noted, no breakthrough at this time but it is becoming tenuous in this area. Lower extremities with 5 out of 5 strength in all major muscle groups Upper extremities show 5/5 strength in all major muscle groups. Except for RUE due to clavicle fracture. No focal deficits however able to fire axillary/med/rad/ulnar nerves There is FROM that is painless of the b/l UE and LE in all major joints. Except RUE due to fracture They are intact to light touch sensation in L2 to S1 nerve distribution. DTR 2/4 all upper and lower extremities Patient has palpable dorsalis pedis was posterior tibial pulses. Palpable Rad Ulnar pulses b/l Compartments are soft and compressible. Patient shows a negative Homans Cranial nerves II through XII are grossly intact. Results multiple views of the left shoulder and clavicle demonstrate a midshaft clavicle fracture which is oblique in nature, about 300% displaced and nearly 3.5 cm shortened. Glenohumeral joint is congruent AC joint is prominent SC joint is congruent this time. No other fractures or dislocations noted. Assessment and Plan Assessment: 1. left midshaft clavicle fracture displaced comminuted shortened closed with tenting of skin Plan: Orthopedic Surgery Risk Review Jose Sandy is a 51 yo male presenting for evaluation of sudden onset left shoulder pain pain, inability to bear weight after tripping over his cat and falling on his left shoulder. It was my pleasure to have seen and examined Jose. In our visit today we have had a chance to go over subjective complaints, physical examination findings and treatments including the natural course history without intervention and various interventional options. his imaging demonstrates comminuted displaced shortened clavicle fracture mid shaft tenting the skin. On physical exam, Y Coledemonstrates pain with motion of left arm, which is NV intact at this time. I have explained to the patient that this fracture needs stabilization. Based on the patients imaging, physical exam, and the rapid progression and disabling nature of her symptoms, at this time I recommend surgery in the form or a: ORIF left clavicle I discussed the risk and benefits of this procedure at length with Jose. Questions were invited and answered, and the patient wishes to proceed as outlined below. Currently, I am recommendin. open reduction and internal fixation left clavicle 2. Review of surgical risks and benefits as well as an educational packet on the proposed surgical procedure. Risks: All surgical procedures come with inherent risks, including those related to positioning, anesthesia, intraoperative findings, and postoperative complications. It is important to understand that surgery does not come with any guarantee of a successful outcome as complications and adverse events are always possible. The patient was given a handout discussing the surgical procedure and risks associated with the intervention, both of which were discussed with the patient. These risks include but are not limited to the following: - Experiencing same, different or even worse symptoms compared to before surgery. - Requiring further surgery or other forms of treatment presently or at some time in the future . - On an extreme but fortunately relatively rare basis severe complication such as blindness, stroke, heart attack, temporary and/or permanent nerve injury, paralysis, coma, or may occur, sometimes without known explanation. - Surgical complications may include but are not limited to risk of infection, fluid accumulation in the surgical dissection site, including a seroma or hematoma, that requires additional surgery, wound drainage, bleeding, new numbness or weakness, vision changes/loss, spinal fluid leakage, non-healing and/or infected incision, headaches, difficulty or inability to swallow, hoarseness, hemopneumothorax, pneumothorax, injury to nerves, spinal cord, blood vessels, lymphatics or other vital organs (i.e., bowel injury, injury to the great vessels); heterotopic bone formation; complications related to the hardware such as screws, rods, including misplaced hardware, device failure, hardware fracture/breakage, or hardware loosening; retained surgical instrumentations or devices and the need for further surgery. - Medical risks of the planned surgery include but are not limited to generalized Infections to the whole body or local areas outside of the surgical site (sepsis), heart attack, bleeding, anaphylaxis, meningitis, seizure, epilepsy, hearing loss, burn bundy, laceration of the head or other areas of the body, bruising, hypersensitivity of the skin, bladder over distension; allergic reaction; shoulder injury related to positioning; fat, blood and air clots to other areas of the body like heart, lungs, brain; failure of internal organs such as lungs, kidneys, liver and excessive bleeding. If blood transfusions are necessary, note that transfusions may cause intolerance reactions such as anaphy laxis or other complex reactions. Despite best efforts, the results of surgery might not heal in terms of bone, soft tissues such as skin, fascia, ligaments, and joints. [facility] is an educational center that serves as a training facility for physician assistants, nurses, orthopedic residents and fellows. Residents are physicians who are completing their surgical intensive training following medical school. They assist in the operating room with direct supervision of the attending surgeons. [place] are surgeons who have completed their training and eligible for board certification. They have opted for an elective year of more specialized training in their field. They assist in the operating room under the supervision of the attending surgeons. Physician assistants are medically trained surgical providers who function in the outpatient, inpatient, and operating room setting under the direct supervision of the attending surgeon. [facility] has multiple operating rooms with single and overlapping rooms running daily. They currently function under the required guidelines as produced by the [facility] Finance Committee with regards to the overlapping rooms and will continue to comply with changes to this policy as they occur. The requirements include and are complied with as follows: (1) the critical portions of the overlapping rooms will not occur at the same time, (2) the attending physician will be physically present during the critical portions of the procedure and immediately available during the entire case, and (3) a back-up attending is designated should the primary attending not be immediately available. The patient has had a chance to review all the listed information, has been given print outs detailing this information, and has had all his/her questions answered to their satisfaction. It was my pleasure to have seen and examined Jose Sandy. In our visit today we have had a chance to go over my understanding of our patient's current condition, the natural course history without intervention and various interventional options. Questions were invited and answered, and the patient wishes to proceed as outlined above. I have seen and examined the patient for 25 minutes and we have spent more than 50% of the time in repeat and detailed counseling about the patient's condition, its natural course history with out and as much as can be predicted with surgery and re-review of various surgical treatment options. We discussed surgical and non surgical options at length and he states he would like to have surgery for this. In conclusion, Jose Sandy requested we proceed with the above suggested surgery and are willing to accept risks and limitations of the suggested surgery as nature of the disease process and our best attempts at treatment for the condition. Thank you again for allowing us to be part of your patient's care. Please don't hesitate to contact me if you have any further questions. Signed and authenticated by: Everett L[facility] [address] [address] This message is confidential, intended only for the named recipient(s) and may contain information that is privileged or exempt from disclosure under applicable law. If you are not the intended recipient(s), you are notified that the dissemination, distribution or copying of this information is strictly prohibited. If you received this message in error, please notify the sender then delete this message.
[~2021-07-15 07:50] MED LIST changes: -DEXAMETHASONE SOD PHOSPHATE 10 MG/ML 1 ML VIAL IV ONE; +HYDROmorphone 0.5 MG/0.5 ML SYRINGE IVP PRN; -HYDROmorphone 1 MG/ML 1 ML SYRINGE IVP PRN; +LACTATED RINGERS 1,000 ML IV SCH; +LIDOCAINE 1% (10MG/ML) FOR IV START INTRADERMA PRN; -LIDOCAINE 1% 20 ML VIAL (10MG/ML) FOR IV START INTRADERMA PRN; -MIDAZOLAM 2 MG/2 ML VIAL IV PRN; +ONDANSETRON 4 MG/2 ML VIAL IVP ONE; -Pre Op ABX Message 1 EACH MISC MISCELLANE ONE; -SCOPOLAMINE 1.5MG/72HR PATCH TRANSDERM ONE; -fentaNYL (PF) 50 MCG/ML 2 ML AMP IVP PRN
[2021-07-15] MEDS ORDERED: DEXAMETHASONE SOD PHOSPHATE 4 MG/ML 1 ML VIAL IVP ONE (08:50)
--- NOTE | 2021-07-15 11:17 | P.PN ---
Progress Note - Text Progress Note Date: 07/15/21 Patient seen and evaluated in the preoperative area all preoperative protocols followed. We discussed the risks and benefits once again and he is willing to proceed. The site was marked and consent was confirmed anesthesia cleared the patient for surgery. He is willing and ready to proceed
[2021-07-15] MEDS ORDERED: SUCCINYLCHOLINE CHLORIDE 100 MG/5 ML SYR IV ONE (11:45)
[2021-07-15] MEDS ORDERED: MIDAZOLAM 2 MG/2 ML VIAL ONE (11:45)
[2021-07-15] MEDS ORDERED: HYDROmorphone (PF) 1 MG/ML ONE (11:45)
[2021-07-15] MEDS ORDERED: GLYCOPYRROLATE 0.2 MG/ML 2 ML VIAL ONE (11:45)
[2021-07-15] MEDS ORDERED: ROCURONIUM 10 MG/ML (5 ML VIAL) IV ONE (11:45)
[2021-07-15] MEDS ORDERED: PHENYLEPHRINE-0.9% NACL SYG 1,000 MCG/10 ML SYRINGE ONE (11:45)
[2021-07-15] MEDS ORDERED: PROPOFOL 10 MG/ML 20 ML VIAL IV ONE (11:45)
[2021-07-15] MEDS ORDERED: LIDOCAINE 1% INJ 10MG/ML (20 ML MDV) ONE (11:45)
[2021-07-15] MEDS ORDERED: fentaNYL (PF) 50 MCG/ML 2 ML AMP ONE (11:45)
[2021-07-15] MEDS ORDERED: NEOSTIGMINE 1 MG/ML 10 ML VIAL ONE (11:45)
[2021-07-15] MEDS ORDERED: LACTATED RINGERS 1,000 ML IV ONE ×3 (12:15→15:30)
[2021-07-15] MEDS ORDERED: BUPIVACAINE (PF) 0.5% 30 ML VIAL SQ ONE ×3 (12:21)
[2021-07-15] MEDS ORDERED: ceFAZolin 3,000 MG in SODIUM CHLORIDE 0.9% IRRIGATIO 3,000 ML IRRIGATION ONE (14:17)
--- NOTE | 2021-07-15 14:51 | XR ---
EXAMINATION TYPE: XR clavicle LT DATE OF EXAM: 07/15/2021 COMPARISON: NONE HISTORY: Postop TECHNIQUE: 2 view submitted FINDINGS: Resolution limited due to intraoperative images. Comminuted displaced fracture left clavicl e with postsurgical change. IMPRESSION: Postsurgical change
--- NOTE | 2021-07-15 14:52 | FL ---
EXAMINATION TYPE: FL guidance operating room DATE OF EXAM: 07/15/2021 HISTORY: Fluoroscopy time 26 seconds of fluoroscopy provided. IMPRESSION: 1. Fluoroscopy time.
[2021-07-15 15:17] VITALS: TEMP 97.6
--- NOTE | 2021-07-15 15:20 | P.PN ---
Progress Note - Text Progress Note Date: 07/15/21 Brief Post Op: Surgeon: Roberto Pre op dx; left clavicle fracture comminuted displaced shortened skin tenting Post op dx: Same Procedure: Left clavicle ORIF Anesthesia: GETA EBL: 75 mL Fluids: 1200 UO: none Dispo: Stable to PACU Post op Plan: NWB LUE in sling at all times Encourage ambulation IS 10x/hr Teds/SCDs Pain control Ice and rest for pain and swelling Take pain meds as needed Follow up in 2 weeks for post op eval DC home once awake and stable for dc home with self care per anesthesia staff
[2021-07-15 15:52] VITALS: RESP 20
[2021-07-15 16:30] VITALS: BP 162/82; PULSE 80
--- NOTE | 2021-07-16 18:53 | OP ---
OPERATIVE REPORT DATE OF SERVICE: 07/15/2021. SURGEON: Dr. Everett Mejia PREOPERATIVE DIAGNOSIS: Left clavicle fracture, comminuted, displaced, shortened with skin tenting. POSTOPERATIVE DIAGNOSIS: Left clavicle fracture, comminuted, displaced, shortened with skin tenting. PROCEDURE PERFORMED: Left clavicle ORIF. ANESTHESIA: GETA. EBL: Seventy-five. FLUIDS: One thousand two hundred. URINE OUTPUT: None. DISPOSITION: Stable to PACU. INDICATION FOR PROCEDURE: This is a 51-year-old male presented to the office after visiting the emergency department for a fall from standing. The patient tripped over his cat and fell onto his left shoulder fairly hard. He was found to have a comminuted displaced shortened clavicle fracture with skin tenting. The patient has been somewhat intolerant of the sling at this time. 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 We discussed different options for him, surgical versus nonsurgical options. Due to the high comminution as well as the degree of displacement and shortening of the fracture, we discussed surgical fixation. He agreed with this and would like to proceed with this. The patient was seen preoperatively. All preoperative protocols followed. The patient was seen by Department of Anesthesia, deemed fit for surgery. Informed consent was obtained. Risks and benefits of the procedure discussed as outlined in the risk review. He was willing to assume these risks and all the risks of surgery. The site was marked. The patient was given a weight based dose of antibiotics preoperatively and he was willing to proceed. OPERATIVE COURSE: Patient was transferred to operative suite, placed supine on a flat top Yao table. All bony prominences were padded accordingly. SCDs were placed on the bilateral lower extremities. The right arm was placed on an arm board. This was well padded. The patient was then drifted off to sleep by Department of Anesthesia. General endotracheal intubation was performed. Once adequate anesthesia had been obtained, the patient's left shoulder and left arm were exposed. A bump was placed into the patient's left shoulder. Then, the patient was placed in reverse Trendelenburg for visualization purposes. Bio marking was then performed using the C-arm, which confirmed the fracture side comminution displacement. We then did a preoperative brief. Everyone in the room was in agreement to proceed. His left arm and shoulder area were then prepped and draped in normal sterile fashion. Time-out was performed. All parties were in agreement with the procedure to be performed. A skin incision was then made along the outline of the previously bio marked clavicle from medial to lateral. Dissection was taken down until the clavipectoral fascia was identified. This was then incised sharply down to bone. This provided a good sleeve for closure later. We then used periosteal elevator to clear off the clavicle and to allow for visualization of the fracture. Fracture was highly comminuted laterally. The medial portion was still intact fairly well. However, there were approximately 6-8 pieces within the middle portion that were extremely comminuted. This was almost log splitter type effect with a long oblique type fractures. The fracture was extremely shortened as well and so we attempted to maintain length of the fracture. Once the fracture was cleaned, we irrigated it thoroughly and scraped any hematoma from the area. We removed any devitalized bone from the area as well. We then using clamps were able to reduce the fracture marginally. We then selected a plate and clamped the plate in place, which aided in the reduction of the fracture as well as the reduction of the length of the clavicle. We first placed screws medially into this segment to allow for fixation of the fracture to a stable segment. We then placed screws in the midportion of the plate and fracture in a leg, technique to provide stability to the fracture comminuted pieces. We then out laterally, re reduced the lateral portion to the plate to allow for once again ligamental taxus as well as for the fracture to maintain its length as well as alignment and rotation. Once this was in place, we placed screws laterally. We did place locking screws in area where bone was of void. There was a rather large bone void due to some devitalized bone of the anterior and superior portion of the lateral 3rd of the clavicle. The devitalized bone was removed and ground up for graft. We did use fluoroscopic guidance for the placement of screws and took extra care not to penetrate deep. Once screws were placed and the plate was in place, the shoulder was taken through range of motion and everything was stable. AP and lateral fluoroscopic images confirmed good reduction as well as plate placement. We then thoroughly irrigated the wound and the fracture site. We then grafted the fracture using DBM and autograft from the area to fill the void in this area. We were then able to close the clavipectoral fascia over the plate with 0-Vicryl followed by 2-0 Vicryl in the subcu tissue followed by a strata fix in the subcuticular. This was then cleaned with alcohol and Exofin glue was placed on the skin. We then placed an Aquacel dressing over the area. The patient was then awakened by the Department of Anesthesia, having tolerated the procedure very well. No complications. He was then transferred to postoperative care unit in stable condition. MMODL / IJN: [id number] /
== END 2021-07-15 16:51 | disposition home or self-care (01) ==
LOC: OR 07:50
PROVIDERS: ATTEND Orthopaedic Surgery
DX: S42.022A Displaced fracture of shaft of left clavicle, initial encounter for closed fracture (principal); W01.0XXA Fall on same level from slipping, tripping and stumbling without subsequent striking against object, initial encounter; G47.33 Obstructive sleep apnea (adult) (pediatric); I10 Essential (primary) hypertension; I48.91 Unspecified atrial fibrillation; F17.210 Nicotine dependence, cigarettes, uncomplicated; Z85.528 Personal history of other malignant neoplasm of kidney; Z79.899 Other long term (current) drug therapy; I48.92 Unspecified atrial flutter
CPT/HCPCS: 73000; 23515; C1713 ×2; J2250; J1100; J2710; J0690 ×2; J2405; J2001; J3010; J1170; J2370; J0330; J2704

== ENCOUNTER → 2021-10-17 | Outpatient (CLI) | payer BC ==
[2021-10-17 17:29] LABS: Basophils # (A) 0.1 k/uL (0-0.2); Basophils % (A) 1 %; Eosinophils # (A) 0.2 k/uL (0-0.7); Eosinophils % (A) 3 %; HGB 15.1 gm/dL (13.0-17.5); Lymphocytes # (A) 1.8 k/uL (1.0-4.8); Lymphocytes % (A) 20 %; MCHC 32.2 g/dL (31.0-37.0); MCV 102.5 fL (80.0-100.0); Macrocytosis Slight; Mean Platelet Volume 7.4; Monocytes # (A) 0.5 k/uL (0-1.0); Monocytes % (A) 5 %; Neutrophils # (A) 6.2 k/uL (1.3-7.7); Neutrophils % (A) 69 %; Platelet Count 243 k/uL (150-450); RBC 4.58 m/uL (4.30-5.90); RDW 13.3 % (11.5-15.5); WBC 9.1 k/uL (3.8-10.6)
[2021-10-17 17:34] LABS: ALT 23 U/L (4-49); AST 31 U/L (17-59); African American GFR (CKD) >90 (>60 ml/min/1.73 sqM); Albumin 4.5 g/dL (3.5-5.0); Alkaline Phosphatase 90 U/L (38-126); Anion Gap 7 mmol/L; Blood Urea Nitrogen 19 mg/dL (9-20); Calcium 9.6 mg/dL (8.4-10.2); Carbon Dioxide 28 mmol/L (22-30); Chloride 105 mmol/L (98-107); Glucose 107 mg/dL (74-99); Non-African American GFR(CKD) >90 (>60 ml/min/1.73 sqM); Potassium 4.8 mmol/L (3.5-5.1); Sodium 140 mmol/L (137-145); Total Bilirubin 0.7 mg/dL (0.2-1.3); Total Protein 7.5 g/dL (6.3-8.2)
--- NOTE | 2021-10-18 08:45 | CT ---
EXAMINATION TYPE: CT abdomen pelvis w con DATE OF EXAM: 10/17/2021 COMPARISON: CT 06/20/2019 HISTORY: renal CA CT DLP: 1712.6 mGycm Automated exposure control for dose reduction was used. TECHNIQUE: Helical acquisition of images from the lung bases through the pelvis have been completed. CONTRAST: Performed with Oral Contrast and with IV Contrast, patient injected with 100 mL of Isovue 300. FINDINGS: Coronary artery calcifications again noted, there is a pectus deformity LUNG BASES: No significant abnormality is appreciated. AORTA: No significant abnormality is appreciated. LIVER/GB: No significant abnormality is appreciated. PANCREAS: No significant abnormality is seen. SPLEEN: No significant abnormality is seen. ADRENALS: No significant abnormality is seen. KIDNEYS: Patient is post right nephrectomy. Left kidney is stable, exophytic cyst is present at the u pper pole anteriorly measuring approximately 3 cm REPRODUCTIVE ORGANS: No significant abnormality is seen BOWEL: Diverticular changes associated with the descending and sigmoid colon. FREE AIR: No Free Air visible. ASCITES: None visible. PELVIC ADENOPATHY: None visualized. RETROPERITONEAL ADENOPATHY: No Retroperitoneal Adenopathy visible. URINARY BLADDER: No significant abnormality is seen. OSSEOUS STRUCTURES: Degenerative disc changes are present in the visualized spine, lucency present i n the right neural foraminal region at L5-S1 may represent a disc herniation, correlate for right L5 radiculopathy, there is facet arthropathy. IMPRESSION: NO EVIDENT RECURRENCE. POSTOP CHANGE. DIVERTICULOSIS, DEGENERATIVE DISC DISEASE AND LUMBAR SPINE.
--- NOTE | 2021-10-18 15:38 | XR ---
EXAMINATION TYPE: XR chest 2V DATE OF EXAM: 10/17/2021 COMPARISON: Chest x-ray 06/20/2019 HISTORY: Renal carcinoma, abnormal chest x-ray TECHNIQUE: Frontal and lateral views of the chest are obtained. FINDINGS: There is no focal air space opacity, pleural effusion, or pneumothorax seen. The cardiac silhouette size is within normal limits. Aorta is dense. The osseous structures are intact, There is thoracic spondylosis, postop change noted to the left clavicle IMPRESSION: No acute cardiopulmonary process.
== END | disposition home or self-care (01) ==
LOC: RADCTMAIN 16:38
PROVIDERS: ATTEND Urology
DX: C64.9 Malignant neoplasm of unspecified kidney, except renal pelvis (principal)
CPT/HCPCS: 80053; 85025; 71046; 74177; 36415; G0103; Q9967

== ENCOUNTER → 2023-09-09 | Outpatient (CLI) | payer BC ==
--- NOTE | 2023-09-09 15:13 | PE ---
EXAMINATION TYPE: PET CT fusion skull to thigh DATE OF EXAM: 09/09/2023 CLINICAL INDICATION:Male, 53 years old with history of R91.8 LUNG MASS RIGHT; TECHNIQUE: Following the intravenous administration of 9.5 mCi of F-18 FDG, whole body images are p erformed from the skull base to the midthigh. Images are reviewed on the computer in the coronal, ax ial, and sagittal planes. Reconstructed rotating images are created on independent workstation and r eviewed on the computer. A non-contrast CT is performed in conjunction with the PET scan. Glucose l evel 86 mg/dL CT DLP: 610 mGycm, Automated exposure control for dose reduction was used. COMPARISON: CT 10/17/2021, 08/24/2023 PET/CT None, FINDINGS: Mediastinal SUV mean is 2.5. Hepatic parenchyma SUV mean is 2.8 . SKULL BASE AND NECK: No suspicious radiotracer activity. CHEST, MEDIASTINUM, AND HILAR REGION: There is a mass within the right perihilar region max SUV 13.9 measuring at least 30 x 26 mm with sub carinal lymph node measuring 6 8 mm Max SUV 9.5. There is atelectasis extending away from this mass t owards the periphery. ABDOMEN AND PELVIS: Tiny indeterminate focus of uptake in the left hepatic lobe. Max SUV 5.1 measuring 4 mm. MUSCULOSKELETAL STRUCTURES: No suspicious radiotracer activity. OTHER CT: Atherosclerosis of the arterial vasculature is mild. Left clavicle fixation hardware. Left back upper back probable sebaceous cyst measuring 40 x 20 mm. Mild pectus excavatum inferiorly. Scatt ered colonic diverticula. Fat-containing left inguinal hernia. Fat-containing umbilical hernia. The r ight kidney is surgically absent. IMPRESSION: * Findings compatible with right perihilar mass measuring up to 3.0 x 2.6 cm with metastatic disease to at least the subcarinal lymph node. * Indeterminate left hepatic lobe 4 mm focus of uptake. Attention on follow-up imaging.
== END | disposition home or self-care (01) ==
LOC: RADPETMAIN 08:47
PROVIDERS: ATTEND Radiology Radiation Oncology
DX: R91.8 Other nonspecific abnormal finding of lung field (principal); R93.2 Abnormal findings on diagnostic imaging of liver and biliary tract
CPT/HCPCS: 78815; A9552

== ENCOUNTER → 2024-12-07 | Outpatient (CLI) | payer BC ==
--- NOTE | 2024-12-11 06:57 | PE ---
EXAMINATION TYPE: PET CT fusion skull to thigh DATE OF EXAM: 12/07/2024 COMPARISON: Prior PET/CT September 09, 2023 HISTORY: Lung cancer progress study. TECHNIQUE: Following the intravenous administration of 11.55 mCi of F-18 FDG, whole body images are performed from the skull base to the midthigh. Images are reviewed on the computer in the coronal, a xial, and sagittal planes. Reconstructed rotating images are created on independent workstation and reviewed on the computer. A localization and attenuation correction CT is performed in conjunction with the PET scan. Blood glucose level equals 98. SCAN: Subsequent Scan FINDINGS: SKULL BASE AND NECK: New suspicious lymph node at the level of the clavicles between the left common carotid and left subclavian arteries measuring 1.4 x 0.8 cm axial image 70 abnormal hypermetabolic u ptake, max SUV is 7.86s. CHEST, MEDIASTINUM, AND HILAR REGION: Posttreatment changes right upper lung with new large bleb and pleural thickening extending to the right hilar region. Right-sided volume loss is present. Persiste nt roughly 1.0cm focus of hypermetabolic activity anterior right mid lung axial image 91, max SUV is 5.43. No additional new or residual areas of abnormal hypermetabolic uptake at this level on current study. No abnormal hypermetabolic uptake in the subcarinal region on current study. ABDOMEN AND PELVIS: Right nephrectomy changes redemonstrated. No new hypermetabolic adrenal masses. S uggestion of enlarging heterogeneous lesion lateral segment left hepatic lobe with hypodense area and some calcification measuring approximately 3.0 cm in length, max SUV is 8.29. No additional new area s of abnormal hypermetabolic uptake. OSSEOUS STRUCTURES: No new areas of abnormal hypermetabolic uptake. OTHER CT: Surgical change left clavicle is redemonstrated. Left posterior subcutaneous upper thoracic lesion axial image 63 redemonstrated favoring sebaceous cyst. Cardiomegaly with coronary artery calc ification is redemonstrated. Pectus excavatum deformity. Atherosclerotic and ectatic abdominal aorta. Sigmoid colonic diverticula. Multilevel spurring and disc space narrowing through the thoracolumbar spine. IMPRESSION: Overall mixed treatment response with improvement in right hilar neoplasm and subcarinal adenopathy but new left supraclavicular adenopathy and enlarging hypermetabolic hepatic lesion suspic ious for metastatic focus noted. [facility], , 12/11/2024 6:54 AM
== END | disposition home or self-care (01) ==
LOC: RADPETMAIN 12:41
PROVIDERS: ATTEND Internal Medicine Hematology & Oncology
DX: C34.11 Malignant neoplasm of upper lobe, right bronchus or lung (principal); R59.0 Localized enlarged lymph nodes
CPT/HCPCS: 78815; A9552

== ENCOUNTER → 2025-03-22 | Outpatient (CLI) | payer BC ==
--- NOTE | 2025-03-25 17:19 | PE ---
EXAMINATION TYPE: PET CT fusion skull to thigh DATE OF EXAM: 03/22/2025 CLINICAL INDICATION:Male, 55 years old with history of C34.11 Lung ca; TECHNIQUE: Following the intravenous administration of 11.05 mCi of F-18 FDG, whole body images are performed from the skull base to the midthigh. Images are reviewed on the computer in the coronal, axial, and sagittal planes. Reconstructed rotating images are created on independent workstation and reviewed on the computer. A non-contrast CT is performed in conjunction with the PET scan. Glucose level 117 mg/dL CT DLP: 848 mGycm, Automated exposure control for dose reduction was used. COMPARISON: CT 08/24/2023, 10/17/2021, PET/CT 12/07/2024, 09/09/2023, MRI: None FINDINGS: Mediastinal SUV mean is 2.2. Hepatic parenchyma SUV mean is 2.7. SKULL BASE AND NECK: Left supraclavicular lymph node measuring up to 2.7 cm with a maximum SUV of 7. 9. New from prior exam. CHEST, MEDIASTINUM, AND HILAR REGION: Posttreatment changes with similar right apical/suprahilar soft tissue with cavitation. Demonstrates a maximum SUV of 6.0. Previously 5.4. Multiple enlarged and new scattered pulmonary nodules. These demonstrate FDG activity. Examples include a left lower lobe 7.8 mm pulmonary nodule with a maximum SUV of. 2.9. Previously thiago sured up to 4.3 mm. Superior segment left lower lobe 9.7 mm pulmonary nodule with a maximum SUV of 4.3. Previously measur ed up to 6.8 mm. Lingular 1.2 cm pulmonary nodule with a maximum SUV of 4.5. Previously measured up to 6 mm. Left superior mediastinal lymph node measured 2.4 cm with a maximum SUV of 8.5. Previously measured u p to 1.4 cm. Adjacent left superior mediastinal lymph node measuring up to 1.3 cm with a maximum SUV of 7. Previou sly measured up to 8 mm. ABDOMEN AND PELVIS: Enlarged left paraaortic 1.4 cm lymph node which is FDG activity with a maximum SUV of 6.7. Similar left lateral hepatic lobe lesion with calcification. Demonstrates a maximum of SUV of 4.22, p reviously 8.29. Mildly enlarged FDG avid right inguinal lymph node measuring up to 1.6 cm with a maximum SUV of 3.3. MUSCULOSKELETAL STRUCTURES: Mild diffuse radiotracer uptake throughout the osseous structures likely related to posttreatment jennifer nges. OTHER CT: Inferior left maxillary sinus 1.9 cm mucous retention cyst. Mild bilateral carotid bulb naomi cification of the right greater than left. Atherosclerotic calcification of the arterial vasculature. Left clavicle fixation hardware. Stable left upper back probable sebaceous cyst measuring up to 4 cm . Pectus excavatum. Small coronary artery calcifications. Right kidney surgically absent. Stable left renal cyst measuring up to 3.2 cm. Similar calcification within the left lateral hepatic lobe. Small fat filled periumbilical hernia. Small fat-containing left and the hernia. Distal colonic diverticul osis without evidence for acute diverticulitis. Mild centrilobular emphysematous changes. Multilevel degenerative changes of the spine. IMPRESSION: Overall progression of metastatic disease with new FDG avid left para-aortic lymph node, new and enla rging left superior mediastinal/supraclavicular FDG avid lymph nodes, FDG avid right inguinal lymph n ode, and a few new and enlarging FDG avid pulmonary nodules. Similar left hepatic lobe FDG avid metas tatic lesion. Similar posttreatment changes with some FDG activity within the right upper lobe. Resid ual disease is not excluded. [facility], , 03/25/2025 5:16 PM
== END | disposition home or self-care (01) ==
LOC: RADPETMAIN 13:20
PROVIDERS: ATTEND Internal Medicine Hematology & Oncology
DX: C34.11 Malignant neoplasm of upper lobe, right bronchus or lung (principal); R91.8 Other nonspecific abnormal finding of lung field; C78.7 Secondary malignant neoplasm of liver and intrahepatic bile duct
CPT/HCPCS: 78815; A9552

== ENCOUNTER 2025-04-18 07:42 | Day surgery (SDC) | payer BC ==
[2025-04-16 14:36] VITALS: BMI 24.8
[~2025-04-18 07:42] MED LIST changes: -LACTATED RINGERS 1,000 ML IV SCH; -LIDOCAINE 1% (10MG/ML) FOR IV START INTRADERMA PRN; +MIDAZOLAM 2 MG/2 ML VIAL IV PRN; -ONDANSETRON 4 MG/2 ML VIAL IVP ONE; +Pre Op ABX Message 1 EACH MISC MISCELLANE ONE; +fentaNYL (PF) 50 MCG/ML 2 ML AMP IVP PRN
[2025-04-18 08:14] VITALS: TEMP 98.2
[2025-04-18] MEDS: IV FLUID CONTINUATION 1,000 ML IV ONE (08:26)
[2025-04-18] MEDS: DEXAMETHASONE SOD PHOSPHATE 4 MG/ML 1 ML VIAL IV ONE (08:33)
[2025-04-18] MEDS: ONDANSETRON 4 MG/2 ML VIAL IVP ONE (08:33)
[2025-04-18] MEDS: LACTATED RINGERS 1,000 ML IV SCH (08:33)
[2025-04-18] MEDS: HEPARIN SODIUM,PORCINE 5,000 UNIT/ML 1 ML VIAL SQ PRN (08:34)
[2025-04-18] MEDS: ACETAMINOPHEN TAB 500 MG TAB PO PRN (08:35)
--- NOTE | 2025-04-18 08:52 | P.GSHP ---
History of Present Illness H&P Date: 04/18/25 Chief Complaint: Lung cancer Is a 55-year-old male with history of lung cancer. Patient presents today for Port-A-Cath placement. Past Medical History Past Medical History: Atrial Flutter, Cancer, Sleep Apnea/CPAP/BIPAP Additional Past Medical History / Comment(s): hx. atrial flutter for 4 yrs.-has had ablation & takes toprol, supposed to use cpap,varicose veins, hx. kidney cancer 4 yrs. ago-had surg., LUNG CANCER History of Any Multi-Drug Resistant Organisms: None Reported Past Surgical History: Cardiac Ablation, Heart Catheterization Additional Past Surgical History / Comment(s): cardioversion, right nephrectomy Past Anesthesia/Blood Transfusion Reactions: No Reported Reaction Smoking Status: Current every day smoker - Past Family History Mother Family Medical History: Cancer Additional Family Medical History / Comment(s): Breast Father Family Medical History: Myocardial Infarction (OK) Sister(s) Family Medical History: Cancer Brother(s) Family Medical History: Coronary Artery Disease (CAD) Additional Family Medical History / Comment(s): CABG Medications and Allergies Home Medications Medication Instructions Recorded Confirmed Type Atorvastatin [Lipitor] 20 mg PO DAILY 02/23/25 04/16/25 History Fludrocortisone [Florinef] 0.1 mg PO DAILY 02/23/25 04/16/25 History Metoprolol Tartrate [Lopressor] 75 mg PO BID 02/23/25 04/16/25 History Midodrine [ProAmatine] 2.5 mg PO BID 02/23/25 04/16/25 History Allergies Allergy/AdvReac Type Severity Reaction Status Date / Time No Known Allergies Allergy Verified 04/18/25 08:01 Surgical - Exam Vital Signs Temp Pulse Resp BP Pulse Ox 98.2 F 66 16 137/75 97 04/18/25 08:12 04/18/25 08:12 04/18/25 08:12 04/18/25 08:12 04/18/25 08:12 - General well developed, well nourished, no distress - Eyes PERRL - ENT normal pinna - Neck no masses - Respiratory normal expansion - Cardiovascular Rhythm: regular - Abdomen Abdomen: soft, non tender Assessment and Plan Assessment: History of lung cancer. Will perform Port-A-Cath placement
[2025-04-18] MEDS ORDERED: MIDAZOLAM 2 MG/2 ML VIAL ONE (09:14)
[2025-04-18] MEDS ORDERED: fentaNYL (PF) 50 MCG/ML 2 ML AMP ONE (09:14)
[2025-04-18] MEDS ORDERED: KETAMINE HCL IN 0.9 % NACL 50 MG/5 ML SYRINGE ONE (09:14)
[2025-04-18] MEDS ORDERED: PROPOFOL 10 MG/ML 20 ML VIAL IV ONE (09:14)
[2025-04-18] MEDS: LIDOCAINE 1%-EPI 1:100,000 20 ML VIAL SQ ONE ×3 (09:30→09:35)
--- NOTE | 2025-04-18 10:06 | FL ---
Fluoroscopy INDICATION: Pain FINDINGS: Fluoroscopy time: 10 seconds. Total dose area product (DAP) in uGy*m?, mGy*cm? (or similar): 0.3816 Images obtained: 3. Images document port placement IMPRESSION: 1. Documentation of fluoroscopy. [facility], , 04/18/2025 10:04 AM
--- NOTE | 2025-04-18 10:08 | P.OP ---
Date of Procedure: 04/18/25 Preoperative Diagnosis: Lung cancer Postoperative Diagnosis: Colon cancer Procedure(s) Performed: Right subclavian Port-A-Cath Anesthesia: MAC Surgeon: Reji Hernandez Pathology: none sent Condition: stable Disposition: PACU Description of Procedure: The patient was placed on the operating table in the supine position. The patient received IV sedation. The patient's chest was prepped and draped in the usual sterile fashion. A roll had been placed between the shoulder blades in a longitudinal fashion. After prepping and draping the skin was anesthetized 1% local Xylocaine. And then using the Seldinger technique the subclavian vein was cannulated. A wire was placed into the vein and fluoroscopy position the wire at the atrial caval junction. Next the dilator sheath was placed over top the wire and the wire was withdrawn. The catheter was positioned at the atriocaval position. The catheter was placed through the sheath after the dilator was withdrawn. The sheath was then withdrawn. Position of the catheter was confirmed with fluoroscopy. The Port-A-Cath was connected to the catheter. The Port-A-Cath was flushed with saline and then heparinized saline. The skin was closed interrupted 3-0 Monocryl suture. Dermabond was applied. Patient tolerated procedure well and was sent to recovery room stable condition.
[2025-04-18 10:39] VITALS: RESP 18
--- NOTE | 2025-04-18 10:44 | XR ---
EXAMINATION TYPE: XR chest 1V portable DATE OF EXAM: 04/18/2025 10:21 AM COMPARISON: PET/CT 03/22/2025 CLINICAL INDICATION: Male, 55 years old with history of METAPORT PLACEMENT., TECHNIQUE: XR chest 1V portable view(s) obtained. FINDINGS: The heart size is normal. The pulmonary vasculature is normal. There is thickening and increased lung markings at the right apex. This correlates with the area on P ET/CT. Left upper lobe nodule is evident at the second rib end. A port has been placed on the right w ith the tip in the superior vena cava region. No pneumothorax is evident. Old left clavicular reducti on internal fixation has been performed.. IMPRESSION: 1. Right apical increased lung markings. Correlate for atelectasis or pneumonia. Underlying mass is n ot excluded. Follow-up is recommended. 2. Placement of a right-sided port with the tip in the superior vena cava region. No pneumothorax henry dent. [facility], , 04/18/2025 10:42 AM
[2025-04-18 10:46] VITALS: BP 129/79; PULSE 67
== END 2025-04-18 11:01 ==
LOC: OR 07:42
PROVIDERS: ATTEND Surgery
DX: C34.12 Malignant neoplasm of upper lobe, left bronchus or lung (principal); I48.91 Unspecified atrial fibrillation; I48.92 Unspecified atrial flutter; G47.33 Obstructive sleep apnea (adult) (pediatric); F17.200 Nicotine dependence, unspecified, uncomplicated; Z79.52 Long term (current) use of systemic steroids; Z79.899 Other long term (current) drug therapy; Z85.528 Personal history of other malignant neoplasm of kidney; Z90.5 Acquired absence of kidney
CPT/HCPCS: 36561; 77001; 71045; J1644; J1100; J2405; J1642